=== PATIENT | male | born 1970 | race Hispanic/Latino ===

== ENCOUNTER 2017-10-21 12:51 | Emergency (ER) | payer SELFPAY ==
[~2017-10-21] VITALS: Ht 175.3 cm; Wt 68.0 kg
--- NOTE | 2017-10-21 13:42 | Diagnostic Imaging Report ---
EXAMINATION: CHEST 2 VIEWS INDICATION: COUGH AND FEVER COMPARISON: None FINDINGS: TUBES and LINES: None. LUNGS: Lungs are well inflated. Lungs are clear. There is no evidence of pneumonia or pulmonary edema. PLEURA: No pleural effusion or pneumothorax. HEART AND MEDIASTINUM: The cardiomediastinal silhouette is unremarkable. BONES AND SOFT TISSUES: No acute osseous lesion. 6.0 cm ill-defined patchy sclerotic lesion in the proximal right humerus may represent bone infarct or an ecchondroma. UPPER ABDOMEN: No free air under the diaphragm. IMPRESSION: No acute thoracic abnormality. 6.0 cm ill-defined patchy sclerotic lesion in the proximal right humerus may represent bone infarct or an ecchondroma. Correlate for right proximal arm pain. Signed by: Dr. Ifeoma Mei M.D. on 10/21/2017 1:38 PM
[2017-10-21] MEDS ORDERED: AZITHROMYCIN 250 MG TAB PO ONE (14:45)
[2017-10-21 14:51] VITALS: BP 103/63
== END 2017-10-21 15:04 | disposition home or self-care (01) ==
LOC: ER 12:51
DX: R05 Cough (principal); J20.9 Acute bronchitis, unspecified
CPT/HCPCS: 71046; 99284

== ENCOUNTER 2017-10-24 07:51 | Inpatient (IN) | payer SELFPAY ==
[2017-10-24] VITALS (30 sets, daily range): BP systolic 84–152; BP diastolic 60–89
[~2017-10-24] VITALS: Ht 175.3 cm; Wt 69.4 kg
[2017-10-24] MEDS ORDERED: SODIUM CHLORIDE 0.9% 1000ML 1,000 ML IV SCH ×3 (08:15→14:15)
[2017-10-24] MEDS ORDERED: ACETAMINOPHEN 650 MG SUPP PR ONE (08:30)
[2017-10-24] MEDS ORDERED: OCTREOTIDE ACETATE 500 MCG in SODIUM CHLORIDE 0.9% 250ML 250 ML IV STA (08:45)
[2017-10-24] MEDS ORDERED: PANTOPRAZOLE 40 MG 10ML VIAL IV STA (08:45)
[2017-10-24] MEDS ORDERED: PANTOPRAZOLE INJ 40 MG in SODIUM CHLORIDE 0.9% 50ML 50 ML IV STA (08:45)
[2017-10-24] MEDS ORDERED: ACETAMINOPHEN 1000 MG/100 ML IV STA (08:50)
[2017-10-24 09:00] LABS: BASOPHILS % 0.2 % (0.0-1.0); HEMATOCRIT 32.4 % (38.2-49.6); HEMOGLOBIN 11.8 g/dL (14.0-18.0); LYMPHOCYTES # (AUTO) 2.1 (1.0-3.2); LYMPHOCYTES % 12.4 % (18.0-39.1); MEAN CORPUSCULAR HEMOGLOBIN 33.6 pg (28-32); MEAN CORPUSCULAR HGB CONC 36.4 g/dL (31-35); MEAN CORPUSCULAR VOLUME 92.3 fL (81-99); MONOCYTES # (AUTO) 3.3 (0.2-0.8); MONOCYTES % 19.6 % (4.4-11.3); NEUTROPHILS # (AUTO) 11.1 (2.1-6.9); NEUTROPHILS % 66.8 % (38.7-80.0); PLATELET COUNT 69 x10e3/uL (140-360); RED BLOOD COUNT 3.51 x10e6/uL (4.3-5.7); RED CELL DISTRIBUTION WIDTH 13.1 % (11.7-14.4)
[2017-10-24 09:10] LABS: INR 1.4; PARTIAL THROMBOPLASTIN TIME 32.5 seconds (23.8-35.5); PROTHROMBIN TIME 16.1 seconds (11.9-14.5)
--- NOTE | 2017-10-24 09:13 | Diagnostic Imaging Report ---
PROCEDURE: CHEST SINGLE (PORTABLE) COMPARISON: None. INDICATIONS: BRONCHITIS FINDINGS: LUNGS: No edema. Right basilar opacity likely secondary to atelectasis. PLEURA: No effusions or pneumothorax. HEART \T\ MEDIASTINUM: The heart is within normal size-limits. BONES \T\ SOFT TISSUES: No acute findings. CONCLUSION: No acute thoracic abnormality. Rayo Ruiz D.O. Dictated by: Rayo Ruiz D.O. on 10/24/2017 at 9:18 Electronically approved by: Rayo Ruiz D.O. on 10/24/2017 at 9:18
[2017-10-24 09:19] LABS: ACETAMINOPHEN < 3 ug/mL (10-30); ALANINE AMINOTRANSFERASE 150 IU/L (0-55); ALBUMIN 2.6 g/dL (3.5-5.0); ALBUMIN/GLOBULIN RATIO 0.8 (0.8-2.0); ALKALINE PHOSPHATASE 201 IU/L (40-150); AMYLASE 91 U/L (25-125); ANION GAP 16.8 mmol/L (8-16); BLOOD UREA NITROGEN 66 mg/dL (7-26); BUN/CREATININE RATIO 72 (6-25); CALCIUM 8.3 mg/dL (8.4-10.2); CARBON DIOXIDE 23 mmol/L (22-29); CHLORIDE 96 mmol/L (98-107); CREATINE KINASE 17 IU/L (30-200); CREATININE, SERUM 0.92 mg/dL (0.72-1.25); EST GLOMERULAR FILTRATION RATE > 60 ML/MIN (60-); GLUCOSE 125 mg/dL (74-118); LIPASE 172 U/L (8-78); POTASSIUM 3.8 mmol/L (3.5-5.1); SALICYLATE < 5.0 mg/dL (0-30); SODIUM 132 mmol/L (136-145)
[2017-10-24] MEDS ORDERED: SODIUM CHLORIDE 0.9% 50ML 50 ML ONE ×2 (09:42→19:48)
--- NOTE | 2017-10-24 11:08 | Diagnostic Imaging Report ---
History:Altered Mental Status Comparison studies:None Technique: Axial images were obtained from the skull base to the vertex. Coronal and sagittal images reconstructed from the axial data. Intravenous contrast: None Findings: Scalp/skull: No abnormalities. Extra-axial spaces: No masses. No fluid collections. Brain sulci: Age-appropriate. Ventricles: Normal. No hydrocephalus. Parenchyma: No masses, hemorrhage, acute or chronic cortical vascular insults. Sellar/suprasellar region: No abnormalities. Craniocervical junction: Patent foramen magnum. No Chiari one malformation. Incidental findings: Atherosclerotic calcifications in the left distal vertebral artery . Impression: No acute abnormalities. Signed by: Dr. Meir Mendoza M.D. on 10/24/2017 4:39 PM
[2017-10-24] MEDS ORDERED: LORAZEPAM INJ 2 MG/ML VIAL IV ONE (11:15)
--- NOTE | 2017-10-24 11:19 | Diagnostic Imaging Report ---
PROCEDURE: CT ABDOMEN AND PELVIS WITH CONTRAST TECHNIQUE: The abdomen and pelvis were scanned utilizing a multidetector helical scanner from the diaphragm to the lesser trochanter after the IV administration of 100 cc of Isovue 370. Coronal and sagittal multiplanar reformations were obtained. DLP: 456.19 mGy-cm COMPARISON: None. INDICATIONS: POSSIBLE GI BLEED FINDINGS: LOWER THORAX: Normal. HEPATOBILIARY: Mildly nodular contour the liver. Diffuse hypoattenuation of the liver relative to the spleen, suggestive of steatosis. No focal hepatic lesions. No biliary ductal dilatation. Contracted gallbladder. SPLEEN: No splenomegaly. The spleen measures approximately 11.5 cm in length. PANCREAS: No focal masses or ductal dilatation. ADRENALS: No adrenal nodules. KIDNEYS/URETERS: No hydronephrosis, stones, or solid mass lesions. PELVIC ORGANS/BLADDER: Unremarkable. PERITONEUM / RETROPERITONEUM: No free air or fluid. LYMPH NODES: No lymphadenopathy. Borderline enlarged portacaval node measuring 1 cm. VESSELS: Mild atherosclerotic calcifications. The main portal vein is upper normal in size measuring 1.3 cm in diameter. GI TRACT: No distention or wall thickening. Colonic diverticula without evidence of diverticulitis. Appendix is normal. BONES AND SOFT TISSUES: No acute or suspicious osseous lesions. IMPRESSION: 1. Slightly nodular contour the liver may reflect early cirrhosis. 2. Hepatic steatosis. 3. Colonic diverticula without evidence of diverticulitis. Dictated by: Ba Tucker M.D. on 10/24/2017 at 11:22 Electronically approved by: Ba Tucker M.D. on 10/24/2017 at 11:22
[2017-10-24 11:26] LABS: ANISOCYTOSIS SLIGHT; LYMPHOCYTES % (MANUAL) 6 % (19-48); MONOCYTES % (MANUAL) 11 % (3.4-9.0); NEUTROPHILS % (MANUAL) 82 % (40-74); RBC MORPHOLOGY COMMENT NORMAL
[2017-10-24 11:27] LABS: PLATELET ESTIMATE SLIGHTLY DECREASED; PLATELET MORPHOLOGY COMMENT RARE EDTA CLUMPING
[2017-10-24] MEDS ORDERED: LACTULOSE SYRUP 20 GM/30 ML UDC PO ONE (13:15)
--- NOTE | 2017-10-24 13:15 | Diagnostic Imaging Report ---
PROCEDURE:US GALLBLADDER COMPARISON:Same day CT. INDICATIONS:ABDOMEN PAIN TECHNIQUE: Barboza-scale and color Doppler transverse and longitudinal images of the right upper quadrant of the abdomen were obtained. FINDINGS: Liver: 17.3 cm in right mid-clavicular line, enlarged. Increased echogenicity. Mildly nodular contour. No masses. Main portal vein: 1 cm, normal in diameter. Hepatopetal flow. Gallbladder: Contracted, wall measures 0.4 cm. No stones. Common Bile Duct: Not visualized, although not dilated on same day CT. Sonographic Monroy's sign: Negative Right kidney: 10.1 cm in length. Normal echogenicity. No solid masses or hydronephrosis. Pancreas: The visualized portions are unremarkable. Inferior vena cava: Patent Aorta: Within normal limits Ascites: None in the right upper quadrant of the abdomen. CONCLUSION: Mildly nodular liver contour suggestive of cirrhosis. No focal hepatic mass. Hepatomegaly and hepatic steatosis. Dictated by: Ba Tucker M.D. on 10/24/2017 at 13:19 Electronically approved by: Ba Tucker M.D. on 10/24/2017 at 13:19
[2017-10-24 13:24] LABS: AMPHETAMINES SCREEN,URINE NEGATIVE (NEGATIVE); BENZODIAZEPINES SCREEN,URINE NEGATIVE (NEGATIVE); BILIRUBIN,URINE 1+ (NEGATIVE); CLARITY,URINE CLEAR (CLEAR); COLOR,URINE YELLOW (YELLOW); KETONES,URINE NEGATIVE (NEGATIVE); LEUKOCYTE ESTERASE ,URINE NEGATIVE (NEGATIVE); NITRITE,URINE NEGATIVE (NEGATIVE); PHENCYCLIDINE SCREEN,URINE NEGATIVE (NEGATIVE); PROTEIN,URINE DIPSTICK NEGATIVE (NEGATIVE); URINE UROBILINOGEN 0.2 mg/dL (0.2 - 1)
[2017-10-24 13:39] LABS: BACTERIA,URINE FEW /HPF; EPITHELIAL CELLS,URINE RARE /LPF; RBC,URINE 0-5 /HPF (0-5)
[2017-10-24] MEDS ORDERED: SODIUM CHLORIDE 0.9% 250ML 250 ML IV ONE (14:15)
[2017-10-24] MEDS: SODIUM CHLORIDE 0.9% 1000ML 1,000 ML IV SCH ×2 (14:20→17:29)
[2017-10-24] MEDS: SODIUM CHLORIDE 0.9% IV SCH (15:00)
[2017-10-24] MEDS: OCTREOTIDE ACETATE IV SCH (15:00)
[2017-10-24] MEDS: CEFEPIME HCL 1 GM VIAL IV SCH ×2 (15:05→22:41)
--- NOTE | 2017-10-24 15:30 | History and Physical ---
HISTORY OF PRESENT ILLNESS: Mr. Enma Wood is a 47-year-old man with history of severe alcohol abuse who on Father's Day, almost 2 weeks ago, he started complaining of fever, body aches, chills. He was brought to the emergency room. He was given Z-arelis and he was sent home. The history is obtained through his girlfriend who lives with him for the last 11 years. The patient is unable to give any history. As per girlfriend, for the last week he has been in bed. He does not want to drink or eat. Yesterday, he started throwing up dark material, and he went to the rest room also with dark stools. As per girlfriend, also since yesterday he has been kind of confused, so she decided to bring him to the emergency room today. PAST MEDICAL HISTORY: Alcohol abuse, 30 beers every other day. He also smokes. SOCIAL HISTORY: He lives at home apparently with his girlfriend. ALLERGIES: NO KNOWN DRUG ALLERGIES. PAST SURGICAL HISTORY: No surgeries apparently. PHYSICAL EXAMINATION GENERAL: The patient is confused. He is not following any commands. VITAL SIGNS: Pulse 100, blood pressure 89/51, O2 is 94%. HEART: Regular rate. LUNGS: Good inspiratory effort. ABDOMEN: Soft. EXTREMITIES: Lower extremities with no edema, no erythema. LABORATORY DATA: White count is 16.62, hemoglobin 11.8, hematocrit 32.4, sodium 132, potassium 3.8, creatinine 0.92, glucose 125. Liver enzymes are elevated. Ammonia is 207. Lipase is 172. Toxicology test was negative. Urine 6-10 white blood cells. Stool for occult blood was positive. Had abdominal and pelvis CT done that showed slightly nodular liver that may reflect early cirrhosis, hepatic steatosis. Head CT was negative. Chest x-ray: No acute findings. Had a gallbladder ultrasound that showed nodular liver suggesting cirrhosis, hepatomegaly and hepatic steatosis. ADMITTING DIAGNOSES 1. Acute mental status changes probably due to hepatic encephalopathy. 2. Hyperammonemia. 3. Probably liver cirrhosis. 4. Upper GI bleed. 5. Leukocytosis, etiology not very clear. PLAN: The plan at the present time is to put the patient on IV fluids. He is on Lactulose. I am going to start him on also some IV antibiotics. We are going to get a GI consult, infectious disease consult. The patient is going to be admitted to ICU to monitor for any recurrent bleeding. I spent more than 40 minutes examining the patient, reviewing lab results, x-rays, discussing plan of care with his girlfriend. Job#: [id number] GH
[2017-10-24] MEDS: PANTOPRAZOL 40MG/SOD CHL 0.9% 50 ML IV SCH ×2 (16:20→21:40)
[2017-10-24] MEDS ORDERED: LORAZEPAM INJ 2 MG/ML VIAL IV PRN (18:30)
[2017-10-24 19:23] LABS: HEMOGLOBIN 9.3 g/dL (14.0-18.0)
[2017-10-24] MEDS ORDERED: IOPAMIDOL 370 MG/ML 200 ML INFUS..BTL INJ ONE (19:48)
--- NOTE | 2017-10-24 20:39 | Consultation ---
DATE OF CONSULTATION: October 24, 2017 REFERRING PHYSICIAN: Dr. Ana Ross. REASON FOR CONSULTATION: Acute episode of recurrent hematemesis and melena at home x1 day. HISTORY OF PRESENT ILLNESS: A 47-year-old male from whom I cannot derive any history. He has current encephalopathy. He has history of alcohol dependence. He lives with his girlfriend. She is not available at the bedside to give me any history. Most of my history information derived from the chart. Apparently, he started having some episodes of vomiting dark material along with passing diarrhea stool. This prompted girlfriend to bring him to the emergency room. He was also noted to be in altered sensorium. Ammonia level was significantly elevated. He was hemodynamically stable, although systolic blood pressure went down in the 90s also. He was noted to have tachycardia with heart rate 120s. Hemoglobin was initially 11.8, dropped down to 9.3 after IV fluid hydration. CT of the abdomen showed nodular liver consistent with cirrhosis, no ascites, no splenomegaly, no colitis seen. Liver enzymes noted abnormal with AST 186, ALT 150, alkaline phosphatase 201 and total bilirubin 7.5. INR also mildly elevated to 1.40. REVIEW OF SYSTEMS: Unobtainable. PAST MEDICAL HISTORY: Alcohol dependence, 15 to 30 cans of beer every other day. PAST SURGICAL HISTORY: None. SOCIAL HISTORY: Alcohol dependence. He lives with his girlfriend. Not sure if he is a smoker. FAMILY HISTORY: Noncontributory. ALLERGIES: NONE. HOME MEDICATIONS: None. INPATIENT MEDICATIONS: Acetaminophen, cefepime, lorazepam, normal saline, pantoprazole, octreotide GTT. PHYSICAL EXAMINATION VITAL SIGNS: Temperature 98.9, T max 100.7, blood pressure 108/89 to 104/81, pulse ranging from 121 to 123, respirations 16 to 18, oxygen saturation 99% on room air. GENERAL: Obtunded. HEENT: Oral mucosa is moist. Icteric sclerae. CVS: S1, S2 regular but tachy. LUNGS: Bilaterally grossly clear with poor respiratory efforts. ABDOMEN: Soft, nondistended, no palpable mass or hernia, positive bowel sounds. EXTREMITIES: Warm. No leg edema. RECTAL EXAM: Deferred. The patient was noted to be sitting on melena. LABORATORY DATA: PT 13.1, INR 1.40, sodium 132, potassium 3.8, chloride 96, bicarb 23, BUN 66, creatinine 0.90, glucose 125. Liver enzymes showed a total bilirubin of 7.5, AST 186, ALT 150, alkaline phosphatase 201, ammonia level 207, lactic acid 24.3. Viral hepatitis serology is pending. Stool occult positive. CT of the abdomen and pelvis showed slightly nodular contour of the liver suggestive of cirrhosis, hepatic steatosis, colonic diverticulosis, no splenomegaly, no free fluid, no abnormal adenopathy. IMPRESSION: 1. Upper gastrointestinal bleed, likely from portal hypertensive gastropathy versus cirrhosis, variceal bleed. 2. Hepatic encephalopathy. 3. Leukocytosis, cause unclear. PLAN: Agree to monitor the patient in ICU. Extended medical management for GI bleeding that should include securing 2 large IV access, IV fluids, prophylactic IV antibiotics for GI bleeds in cirrhotic patient. The patient has already been started on cefepime. Monitor hemoglobin. Monitor stool. Transfuse as necessary to keep the hemoglobin above 7. Please do not over transfuse to keep the hematocrit above 24. Over transfusion is going to make the portal hypertensive gastropathy worse, will feed into varices and then will cause recurrent variceal bleeding. Continue octreotide infusion. Continue PPI infusion. Insert NG tube. Lavage. If the patient's lavage continues to show bright red blood and does not clear with time, then probably the patient will need urgent endoscopy. If lavage gets clear, then we can wait for upper endoscopy until tomorrow. The patient is maintaining good blood pressure. Therefore, he is hemodynamically stable. I do not feel the need for urgent endoscopy at this time. If the lavage is clear, then given Lactulose through the NG tube. I thank Dr. Ross for allowing me to participate in the care of this patient. Job#: [id number] MTDD
[2017-10-24] MEDS: ACETAMINOPHEN 1000 MG/100 ML IV PRN (21:18)
[2017-10-24] MEDS: CHLORDIAZEPOXIDE HCL 25 MG CAP NG PRN ×2 (21:58→23:58)
[2017-10-24] MEDS: LACTULOSE SYRUP 20 GM/30 ML UDC NG SCH (21:58)
[2017-10-24] MEDS ORDERED: CEFEPIME HCL 1 GM VIAL IV SCH (22:00)
--- NOTE | 2017-10-24 22:19 | Diagnostic Imaging Report ---
EXAM: CHEST SINGLE (PORTABLE) DATE: 10/24/2017 7:49 PM Time stamp on exam: 2002 hours INDICATION: NG tube position COMPARISON: None FINDINGS: LINES/TUBES: NG tube is visualized below the level of the diaphragm with tip and distal sidehole overlying the gastric fundus BOWEL PATTERN: No evidence for obstruction. SOFT TISSUES: No abnormal calcifications. No mass effect. LUNG BASES: Lung bases are clear BONES: No acute findings. IMPRESSION: 1. NG tube at least to the level of the gastric fundus. 2. Nonobstructive bowel gas pattern Signed by: Dr. Foreign John M.D. on 10/24/2017 10:15 PM
[2017-10-24] MEDS: METRONIDAZOLE 500MG/NS 100ML 100 ML IV SCH (22:53)
[2017-10-25] VITALS (183 sets, daily range): BP systolic 44–198; BP diastolic 21–135
--- NOTE | 2017-10-25 00:02 | Consultation ---
DATE OF CONSULTATION: October 24, 2017 CRITICAL CARE CONSULTATION REASON FOR CONSULTATION: ICU management. Patient is unable to give me any history. Source of history is the ER chart. Patient is encephalopathic. HISTORY OF PRESENT ILLNESS: Mr. Wood is a 47-year-old male with altered status. Patient has history of alcohol use and has been coughing as well. He was altered, jaundiced, febrile, was having black stools and now has an NG tube which has bright red blood as well. He is usually alert and oriented, but now he is confused. In the emergency room, patient's AST/ALT was 186 and 150, alk phos 201, lipase 172, ammonia of 207. His abnormal CT was done in the emergency room which showed slightly nodular contour of the liver like early cirrhosis and hepatic steatosis. He underwent a chest x-ray which did not show any acute thoracic abnormality. REVIEW OF SYSTEMS: Unable to elicit any review of systems from the patient because of altered mental status. PAST MEDICAL HISTORY: Alcohol abuse, jaundice. None other is available. SURGICAL HISTORY: Not available. FAMILY AND SOCIAL HISTORY: Alcohol use. PHYSICAL EXAMINATION: VITAL SIGNS: Temperature 103, pulse of 123, blood pressure 108/89, O2 sat 99% on room air. HEENT: Head atraumatic. NECK: Supple. Jaundiced. CHEST: Clear to auscultation bilaterally. ABDOMEN: Soft, nontender. EXTREMITIES: No pedal edema. NEUROLOGICAL: Confused. LABORATORY DATA: Sodium 132, potassium 3.8, chloride 96, BUN 66, creatinine 0.9. AST 186, ALT 150, total bilirubin 7.5, ammonia 207, lipase 172. ASSESSMENT AND PLAN: Mr. Wood is a 47-year-old male with gastrointestinal bleed, hepatic encephalopathy, history of alcohol use and acute pancreatitis. CURRENT PROBLEMS: 1. GI bleed. 2. EtOH abuse. 3. Acute peritonitis. 4. Hepatic encephalopathy. 5. Fever, source is not very clear. Likely will need coverage for SBP as patient is high risk for having spontaneous bacterial peritonitis also will need cover for aspiration pneumonia. I will continue the patient on cefepime. Will add Flagyl for anaerobic coverage. 6. Octreotide infusion for GI bleed, could be variceal bleed. GI consult. Patient has received lactulose which will be ordered and scheduled for hepatic encephalopathy. 7. Patient has evidence of alcoholic hepatitis as well. At this point, hold off on the steroids. Job#: [id number] GE
[2017-10-25] MEDS: OCTREOTIDE ACETATE IV SCH (01:00)
[2017-10-25] MEDS: SODIUM CHLORIDE 0.9% IV SCH (01:00)
[2017-10-25] MEDS: CHLORDIAZEPOXIDE HCL 25 MG CAP NG PRN ×8 (02:16→21:49)
[2017-10-25] MEDS: PANTOPRAZOL 40MG/SOD CHL 0.9% 50 ML IV SCH ×4 (02:16→10:30)
[2017-10-25 02:20] LABS: HEMATOCRIT 23.2 % (38.2-49.6); HEMOGLOBIN 8.2 g/dL (14.0-18.0)
[2017-10-25] MEDS: SODIUM CHLORIDE 0.9% 1000ML 1,000 ML IV SCH ×4 (02:58→21:22)
[2017-10-25 05:49] LABS: HEMATOCRIT 23.5 % (38.2-49.6); HEMOGLOBIN 7.9 g/dL (14.0-18.0)
[2017-10-25] MEDS: CEFEPIME HCL 1 GM VIAL IV SCH (06:02)
[2017-10-25] MEDS: METRONIDAZOLE 500MG/NS 100ML 100 ML IV SCH ×2 (06:02→13:00)
[2017-10-25 06:58] LABS: BASOPHILS % 0.4 % (0.0-1.0); HEMATOCRIT 23.1 % (38.2-49.6); LYMPHOCYTES # (AUTO) 1.6 (1.0-3.2); LYMPHOCYTES % 14.7 % (18.0-39.1); MEAN CORPUSCULAR HEMOGLOBIN 33.8 pg (28-32); MEAN CORPUSCULAR HGB CONC 34.6 g/dL (31-35); MEAN CORPUSCULAR VOLUME 97.5 fL (81-99); MONOCYTES # (AUTO) 2.4 (0.2-0.8); MONOCYTES % 22.8 % (4.4-11.3); NEUTROPHILS # (AUTO) 6.5 (2.1-6.9); NEUTROPHILS % 61.1 % (38.7-80.0); PLATELET COUNT 69 x10e3/uL (140-360); RED BLOOD COUNT 2.37 x10e6/uL (4.3-5.7); RED CELL DISTRIBUTION WIDTH 13.9 % (11.7-14.4)
[2017-10-25 07:10] LABS: ALANINE AMINOTRANSFERASE 116 IU/L (0-55); ALBUMIN 2.2 g/dL (3.5-5.0); ALBUMIN/GLOBULIN RATIO 0.9 (0.8-2.0); ALKALINE PHOSPHATASE 161 IU/L (40-150); ANION GAP 10.7 mmol/L (8-16); BLOOD UREA NITROGEN 36 mg/dL (7-26); BUN/CREATININE RATIO 49 (6-25); CALCIUM 7.7 mg/dL (8.4-10.2); CARBON DIOXIDE 21 mmol/L (22-29); CHLORIDE 118 mmol/L (98-107); CREATININE, SERUM 0.74 mg/dL (0.72-1.25); EST GLOMERULAR FILTRATION RATE > 60 ML/MIN (60-); GLUCOSE 113 mg/dL (74-118); POTASSIUM 3.7 mmol/L (3.5-5.1); SODIUM 146 mmol/L (136-145)
[2017-10-25 07:54] LABS: LYMPHOCYTES % (MANUAL) 23 % (19-48); MONOCYTES % (MANUAL) 9 % (3.4-9.0); NEUTROPHILS % (MANUAL) 68 % (40-74)
[2017-10-25 07:55] LABS: ANISOCYTOSIS SLIGHT; HYPOCHROMASIA MODERATE; PLATELET ESTIMATE MODERATELY DECREASED; PLATELET MORPHOLOGY COMMENT FEW LARGE; RBC MORPHOLOGY COMMENT NORMAL
[2017-10-25] MEDS: ACETAMINOPHEN 1000 MG/100 ML IV PRN ×2 (07:57→17:08)
[2017-10-25] MEDS: LACTULOSE SYRUP 20 GM/30 ML UDC NG SCH ×2 (09:30→16:33)
--- NOTE | 2017-10-25 10:14 | Progress Note ---
DATE: October 25, 2017 Mr. Wood is a 47-year-old man with a history of alcohol abuse came to the emergency room 2 weeks with fever and body aches. Since then, as per family he has been sick. Brought to the emergency room yesterday because he was confused and had dark stools. He was admitted to the ICU. Has been evaluated by critical care and GI. PHYSICAL EXAMINATION GENERAL: Today, he still is confused. VITALS: Temperature is 100.4, blood pressure 98/70. HEART: Regular rate. LUNGS: Poor inspiratory effort. ABDOMEN: Soft. BLOOD WORK: White count is 10.68, hemoglobin 8, hematocrit 23.1. Sodium 146, creatinine 0.74, glucose 149. Liver enzymes are elevated. Ammonia is 207. Hepatitis profile is pending. Urine cultures and blood cultures are pending. ASSESSMENT AND PLAN 1. Acute mental status, probably hepatic encephalopathy. 2. Hyperammonemia. 3. Liver cirrhosis. 4. Upper gastrointestinal bleed. 5. Anemia secondary to gastrointestinal bleed. 6. Leukocytosis, low-grade fever, on intravenous antibiotics empirically. PLAN: At the present, is to continue IV fluids. Continue lactulose. Continue IV antibiotics. Continue IV PPIs. He probably will go for an EGD today if stable. All of this was discussed with mother at bedside. All questions were answered to satisfaction. I spent more than 30 minutes examining the patient, reviewing overnight events, lab results, x-ray, and discussing plan of care with mother. Job#: [id number] SANDER
[2017-10-25 11:59] LABS: HEMATOCRIT 22.3 % (38.2-49.6); HEMOGLOBIN 7.8 g/dL (14.0-18.0)
[2017-10-25] MEDS ORDERED: CEFTRIAXONE SOD 1 GM VIAL IV SCH (16:00)
[2017-10-25] MEDS: CEFTRIAXONE SOD 2 GM VIAL IV SCH (16:30)
[2017-10-25] MEDS ORDERED: KETAMINE HCL INJ 50 MG/ML 10 ML VIAL ONE (16:45)
[2017-10-25] MEDS ORDERED: MIDAZOLAM HCL 5MG/ML 2ML VIAL ONE (16:45)
[2017-10-25] MEDS: PANTOPRAZOLE 40 MG 10ML VIAL IV SCH (16:47)
[2017-10-25] MEDS: ACYCLOVIR SODIUM INJ 500 MG in SODIUM CHLORIDE 0.9% 100 ML 100 ML IV SCH (17:00)
--- NOTE | 2017-10-25 17:27 | Consultation ---
DATE OF CONSULTATION: REASON FOR CONSULTATION: Sepsis. HISTORY OF PRESENT ILLNESS: Mr. Wood is a 47-year-old male with history of severe alcoholism. The patient 2 weeks ago had fever, body aches and chills. He was brought into the emergency room. He was given Z-Bill and sent home. The patient apparently comes back with worsening condition with fever and chills. The patient is being admitted. The patient is alcoholic. He drinks about 30 beers daily with a history of liver cirrhosis. PAST SURGICAL HISTORY: Denies. ALLERGIES: NKA. SOCIAL HISTORY: As above. Patient is being admitted. Infectious disease was consulted. The patient is currently in the intensive care unit. There is no family. LABORATORY DATA: Reviewed. His white count is 10.6, hemoglobin 8. His platelets are 69. Hepatitis A, B and C are negative. Toxicology was negative. Blood cultures are still pending. Chest x-ray showed nonobstructive bowel gas pattern. No infiltrate. CT of the abdomen and pelvis shows slightly nodular liver. IMPRESSION: Altered mental status and fever in a patient with alcoholic and liver cirrhosis. I would recommend to put him on Rocephin 1 g q.12. I will obtain an LP since there is really no clear source. Will add acyclovir. Will add ampicillin to cover SSE and listeria. Will add vancomycin. Await blood cultures. Prognosis is guarded. Will follow. Job#: [id number]
[2017-10-25] MEDS: AMPICILLIN SOD 500 MG in SODIUM CHLORIDE 0.9% 50ML 50 ML IV SCH ×2 (18:00→23:37)
[2017-10-25 19:22] LABS: HEMATOCRIT 21.4 % (38.2-49.6); HEMOGLOBIN 7.3 g/dL (14.0-18.0)
[2017-10-26] VITALS (49 sets, daily range): BP systolic 90–135; BP diastolic 29–107
[2017-10-26] MEDS: CHLORDIAZEPOXIDE HCL 25 MG CAP NG PRN ×3 (00:35→09:12)
[2017-10-26] MEDS: ACYCLOVIR SODIUM INJ 500 MG in SODIUM CHLORIDE 0.9% 100 ML 100 ML IV SCH ×3 (00:36→17:07)
[2017-10-26 01:48] LABS: BASOPHILS # (AUTO) 0.1 (0.0-0.1); BASOPHILS % 0.6 % (0.0-1.0); EOSINOPHILS % 0.1 % (0.0-6.0); HEMATOCRIT 24.5 % (38.2-49.6); HEMOGLOBIN 8.4 g/dL (14.0-18.0); LYMPHOCYTES # (AUTO) 1.9 (1.0-3.2); LYMPHOCYTES % 19.7 % (18.0-39.1); MEAN CORPUSCULAR HEMOGLOBIN 33.5 pg (28-32); MEAN CORPUSCULAR HGB CONC 34.3 g/dL (31-35); MEAN CORPUSCULAR VOLUME 97.6 fL (81-99); MONOCYTES # (AUTO) 1.4 (0.2-0.8); MONOCYTES % 14.4 % (4.4-11.3); NEUTROPHILS # (AUTO) 6.1 (2.1-6.9); NEUTROPHILS % 63.9 % (38.7-80.0); PLATELET COUNT 67 x10e3/uL (140-360); RED BLOOD COUNT 2.51 x10e6/uL (4.3-5.7); RED CELL DISTRIBUTION WIDTH 14.4 % (11.7-14.4)
[2017-10-26] MEDS: ACETAMINOPHEN 1000 MG/100 ML IV PRN ×2 (04:16→16:01)
[2017-10-26] MEDS: CEFTRIAXONE SOD 2 GM VIAL IV SCH ×2 (04:16→16:42)
[2017-10-26] MEDS: SODIUM CHLORIDE 0.9% 1000ML 1,000 ML IV SCH (05:30)
[2017-10-26] MEDS: AMPICILLIN SOD 500 MG in SODIUM CHLORIDE 0.9% 50ML 50 ML IV SCH ×4 (05:34→23:55)
[2017-10-26 06:11] LABS: ANION GAP 11.5 mmol/L (8-16); BUN/CREATININE RATIO 21 (6-25); CALCIUM 7.8 mg/dL (8.4-10.2); CARBON DIOXIDE 22 mmol/L (22-29); CHLORIDE 124 mmol/L (98-107); CREATININE, SERUM 0.73 mg/dL (0.72-1.25); EST GLOMERULAR FILTRATION RATE > 60 ML/MIN (60-); GLUCOSE 104 mg/dL (74-118); POTASSIUM 3.5 mmol/L (3.5-5.1)
[2017-10-26 06:19] LABS: SODIUM 154 mmol/L (136-145)
[2017-10-26 06:20] LABS: BLOOD UREA NITROGEN 15 mg/dL (7-26)
[2017-10-26] MEDS ORDERED: DEXTROSE 5%/0.45% SOD CHL 1,000 ML IV ONE (08:13)
[2017-10-26] MEDS: DEXTROSE 5%/0.45% SOD CHL 1,000 ML IV SCH ×2 (08:18→21:37)
[2017-10-26] MEDS: PANTOPRAZOLE 40 MG 10ML VIAL IV SCH ×3 (08:18→20:41)
[2017-10-26] MEDS: LACTULOSE SYRUP 20 GM/30 ML UDC NG SCH ×2 (09:12→17:00)
[2017-10-26] MEDS ORDERED: LIDOCAINE 1% 5ML-MPF INJ ONE (10:15)
[2017-10-26] MEDS ORDERED: LORAZEPAM INJ 2 MG/ML VIAL IV NR (10:30)
--- NOTE | 2017-10-26 10:40 | Progress Note ---
DATE: October 26, 2017 Mr. Wood is a 47-year-old man with a history of alcohol abuse. He came to the emergency room 2 weeks prior to admission with fever and body aches. He did not get better for 2 weeks. He started having changes in mental status and dark stools, so he was brought to the emergency room and admitted to ICU. He has been seen by GI, critical care and infectious disease. PHYSICAL EXAMINATION GENERAL: Today, he is a little more awake and alert. VITALS: Temperature is 98.6, blood pressure 114/58. HEART: Regular rate. LUNGS: Poor inspiratory effort. ABDOMEN: Distended and soft. LABS: On the blood work, white count is 9.52, hemoglobin 8.4, hematocrit 24.5. Sodium is 154, creatinine 0.73, glucose 104. Liver enzymes were elevated. Hepatitis profile came back negative. Blood cultures so far have been negative, urine culture also. PLAN 1. Continue IV fluids. 2. Continue lactulose. 3. Continue IV Protonix. 4. He has been seen by Dr. Galeano of infectious disease who is starting him on Rocephin, acyclovir, ampicillin and vancomycin. 5. The patient is probably going to go for an LP since the source of infection is not clear. 6. The overall prognosis of the patient is still guarded. I spent more than 30 minutes examining the patient, reviewing overnight events, lab results and x-rays. Job#: [id number]
[2017-10-26] MEDS ORDERED: LORAZEPAM INJ 2 MG/ML VIAL IV ONE ×2 (11:15→12:00)
[2017-10-26] MEDS ORDERED: LORAZEPAM INJ 2 MG/ML VIAL ONE (11:29)
[2017-10-26] MEDS ORDERED: MIDAZOLAM HCL 5 MG/ML VIAL ONE (11:29)
[2017-10-26] MEDS ORDERED: MIDAZOLAM HCL 2 MG/2 ML VIAL IV STA (11:47)
--- NOTE | 2017-10-26 12:06 | Progress Note ---
DATE: The patient is more awake. However, still obtunded and getting lactulose. Status post EGD. PHYSICAL EXAMINATION VITAL SIGNS: Temperature 103.2, pulse 98, blood pressure 131/57. CHEST: Clear to auscultation bilaterally. ABDOMEN: Soft. HEART: S1 and S2 audible. LABS: White count of 9000, hemoglobin 8.4 and platelets 67,000. Chemistry: Sodium 154, potassium 3.5, chloride 124, BUN 15, creatinine 0.73. ASSESSMENT AND PLAN: Ed Diaz is a 47-year-old male presenting with gastrointestinal bleeding, hepatic encephalopathy, status post esophagogastroduodenoscopy, upper gastrointestinal bleed. CURRENT PROBLEMS 1. Gastrointestinal bleed: Management per gastroenterology. The patient was diagnosed with reflux esophagitis and acute gastric ulcer. Hemoglobin and hematocrit are stable. 2. Fever: The patient is on antibiotics. SBP was covered. However, continues to spike temperature. Infectious disease has been consulted. Will follow infectious disease recommendations. 3. Hypernatremia: The patient is on normal saline. Will start the patient on D5-1/2 NS at 50 cc an hour. Job#: [id number] MA
--- NOTE | 2017-10-26 14:47 | Consultation ---
DATE OF CONSULTATION: October 26, 2017 NEUROLOGY CONSULTATION HISTORY OF PRESENT ILLNESS: Mr. Wood is severely encephalopathic. There are no family members available at the bedside. History is obtained from review of the electronic medical records. Mr. Wood was brought into the emergency center on October 24, 2017, with a 2-day history of confusion, decreased oral intake, vomiting dark material, and dark stools. The patient was admitted to the intensive care unit for further evaluation and treatment of probable gastrointestinal bleed and encephalopathy. As part of his initial evaluation, Mr. Wood was found to have markedly elevated liver enzymes thought to be secondary to alcohol abuse. The elevation in the liver enzymes and hyperammonemia was thought to be the cause of the patient's altered mental status (i.e., hepatic encephalopathy). However, throughout his hospitalization, the patient has spiked fevers as high as 103 degrees Fahrenheit, and had persistently elevated white blood cell counts with leftward shift. Despite treatment for hyperammonemia with lactulose, the patient's altered mentation did not appear to improve. Dr. Galeano with infectious disease was consulted to evaluate for an underlying infectious etiology. He recommended a lumbar puncture, as well as a neurology consultation to evaluate for other causes of encephalopathy. REVIEW OF SYSTEMS: Unable to obtain secondary to the patient being encephalopathic. PAST MEDICAL HISTORY: Alcohol abuse. It is reported the patient drinks up to 30 beers every other day. PAST SURGICAL HISTORY: No known past surgical history. PAST HOSPITALIZATIONS: No known past hospitalizations. FAMILY HISTORY: Unable to obtain secondary to the patient being encephalopathic. SOCIAL HISTORY: The patient is single, lives with a girlfriend. His level of education and occupation are unknown. The patient is reported use tobacco. He does consume alcohol as detailed in the history of present illness. Use of recreational drugs is unknown. HOME MEDICATIONS: None. Allergies: NO KNOWN DRUG ALLERGIES. NO KNOWN FOOD ALLERGIES. NO KNOWN ALLERGIES TO LATEX. NO KNOWN ALLERGIES TO IODINE OR OTHER CONTRAST MATERIALS. PHYSICAL EXAMINATION VITAL SIGNS: Height 69 inches, weight 147 pounds. BMI 21.6 kg per meter squared. Blood pressure 114/58 mmHg, pulse 96 beats per minute, respiratory rate 18 breaths per minute, oxygen saturation 100% on room air. GENERAL: Patient is awake and alert. Does not appear distressed. HEENT: Normocephalic and atraumatic. Pupils are equal, round and reactive to light. Icteric sclerae. Moist mucous membranes. NECK: Supple. No appreciable thyromegaly. No appreciable carotid bruits. CARDIOVASCULAR: S1 and S2. Regular rate and rhythm. No murmurs, rubs or gallops. RESPIRATORY: Clear to auscultation bilaterally. No wheezes, rhonchi or rales. EXTREMITIES: The skin is warm and dry. No clubbing, cyanosis or edema. The posterior tibial and dorsalis pedis pulses are 2+ and symmetric. SKIN: No rashes or lesions. Mildly jaundice. NEUROLOGIC: Memory/attention: The patient is awake and alert. Oriented to person, place (state only), but not time, or situation. CRANIAL NERVES: Cranial nerve I not tested. Cranial nerve II, III, IV, : Pupils are equal and round, react briskly to light (from 4 mm to 2 mm). Extraocular movements are grossly intact. No nystagmus. Cranial nerve V: Sensation to light touch is grossly intact in the bilateral V1 through V3 distributions. Strength of the temporalis and masseter muscles is within normal limits. Cranial nerve VII: The face is symmetric as are all facial movements. Strength is within normal limits. Cranial nerve VIII: Hearing is grossly intact to finger rub bilaterally. Cranial nerve IX and X: The soft palate elevates equally and symmetrically. Cranial nerve XII: Normal strength of the bilateral sternocleidomastoid and trapezius muscles. Cranial nerve XII: The tongue protrudes midline and moves symmetrically from side to side. STRENGTH: Bulk is normal. The patient moves all extremities equally and symmetrically. He moves all extremities to command. Tone is normal. DTRs: Deep tendon reflexes are 1+ and symmetric at the triceps, biceps, brachioradialis, patellas, and Achilles. Plantar responses are flexor bilaterally. SENSATION: Grossly intact to light touch in both arms and both legs. CEREBELLAR: Unable to assess secondary to the patient being encephalopathic. GAIT: Deferred. SPEECH: Spontaneous speech is dysarthric without aphasia. Repetition cannot be assessed. INVOLUNTARY MOVEMENTS: None. PRONATOR DRIFT: None. LABORATORY DATA: Sodium 154, potassium 3.5, chloride 124, carbon dioxide 22, anion gap 11.5, BUN 15, creatinine 0.73, estimated GFR greater than 60. BUN to creatinine ratio 21. Glucose 104. Calcium 7.8. Ammonia 66, total bilirubin 5.2, AST 140, ALT 116, alkaline phosphatase 161. Total protein 4.6, albumin 2.2, globulin 2.4. Albumin to globulin ratio 0.9. From October 24, 2017, creatinine kinase 17, CK-MB 0.4 and troponin I 0.001. B-natriuretic peptide 21.3. CBC with differential and platelets reveals a white blood cell count of 9.52 with 63.9% neutrophils, 19.7% lymphocytes, 14.4% monocytes, 0.1% eosinophils, 0.6% basophils. Hemoglobin and hematocrit are 8.4 and 24.5, respectively. The platelet count is 67,000. From October 24, 2017, PT 16.1, INR 1.4, and PTT 32.5. From October 24, 2017, urinalysis reveals a urine specific gravity of 1.005, 1+ bilirubin, 6-10 white blood cells with few urine bacteria. Serum salicylate less than 5. Acetaminophen level less than 3. Ethyl alcohol level less than 10. Urine drug screen was negative. Stool occult blood positive. Hepatitis A IgM antibody negative. Hepatitis B surface antigen negative. Hepatitis B core IgM antibody negative. Hepatitis C antibody less than 0.1. DIAGNOSTIC STUDIES: Gallbladder scan of October 24, 2017, mildly nodular liver contour suggestive of cirrhosis. No focal hepatic mass. Hepatomegaly and hepatic steatosis. Chest x-ray on October 23, 2017, no acute thoracic abnormality. CT of the brain without contrast on October 24, 2017: On my review, there is no evidence of recent large territorial ischemia, hemorrhage, mass, or mass effect. CT of the abdomen and pelvis on October 24, 2017: 1. Slightly nodular contour of the liver may reflect early cirrhosis. 2. Hepatic steatosis. 3. Colonic diverticula without evidence of diverticulitis. Chest x-ray on October 24, 2017: 1. NG tube at least to the level of the gastric fundus. 2. Nonobstructive bowel gas pattern. ASSESSMENT AND PLAN: Mr. Wood is a 47-year-old man with a past medical history significant for alcohol abuse, admitted with encephalopathy, hematemesis, and dark stools. The patient's neurological examination is significant for him being moderately to severely encephalopathic. Otherwise, there are no focal deficits on neurological examination. The patient's laboratory data and other diagnostic studies have been reviewed and are documented above. In my opinion, the patient's encephalopathy is probably due to hepatic dysfunction. However, the patient has spiked temperatures as high as 103 degrees Fahrenheit over the past 24 hours. He has had elevated white blood cell counts with leftward shift. These findings in combination with the patient's persistent encephalopathy were concerning to Dr. Galeano for meningitis. The neurology service was asked to perform a lumbar puncture on this patient. However, cerebrospinal fluid cannot be obtained. Mr. Wood was sedated with 8 mg of Ativan and 2 mg of Versed. Even stills, the patient continued to move around throughout the procedure, making it impossible to obtain cerebrospinal fluid. RECOMMENDATIONS 1. Blood work will be ordered to complete an encephalopathy evaluation, including thyroid-stimulating hormone, vitamin B1, vitamin B12, and RPR. 2. As stated above, a lumbar puncture was attempted, but cerebrospinal fluid cannot be obtained due to the patient non-cooperation. Consider having a lumbar puncture performed by interventional radiology on Sunday, October 29, 2017. 3. Continue with current antibiotics. Follow up on the results of the previous collected blood and urine cultures. Consider a repeat lumbar puncture as discussed above. 4. Limit sedative/hypnotic and pain medications as much as possible as these medicines will alter the patient's sensorium. 5. Employe environmental cues to minimize delirium. 6. Defer treatment of the remaining medical comorbidities to the primary and other services following the patient. Thank you for this consultation. I will continue to follow the patient while he remains in the hospital. Time spent 70 minutes. Job#: [id number] SANDER NAJERA
[2017-10-26] MEDS: ZIPRASIDONE 20 MG VIAL IM PRN (14:58)
[2017-10-26] MEDS: WATER STERILE 10 ML VIAL INJ PRN (14:58)
[2017-10-26] MEDS: LORAZEPAM INJ 2 MG/ML VIAL IV PRN ×2 (15:05→23:54)
[2017-10-27] VITALS (52 sets, daily range): BP systolic 46–128; BP diastolic 26–90
[2017-10-27] MEDS: ACYCLOVIR SODIUM INJ 500 MG in SODIUM CHLORIDE 0.9% 100 ML 100 ML IV SCH ×3 (01:00→16:28)
[2017-10-27] MEDS: WATER STERILE 10 ML VIAL INJ PRN (04:41)
[2017-10-27] MEDS: CEFTRIAXONE SOD 2 GM VIAL IV SCH ×2 (04:41→16:28)
[2017-10-27] MEDS: ZIPRASIDONE 20 MG VIAL IM PRN (04:41)
[2017-10-27] MEDS: ACETAMINOPHEN 1000 MG/100 ML IV PRN ×3 (04:41→21:43)
[2017-10-27] MEDS: AMPICILLIN SOD 500 MG in SODIUM CHLORIDE 0.9% 50ML 50 ML IV SCH ×4 (06:27→23:35)
[2017-10-27 06:29] LABS: BASOPHILS % 0.7 % (0.0-1.0); EOSINOPHILS % 0.4 % (0.0-6.0); LYMPHOCYTES % 35.6 % (18.0-39.1); MEAN CORPUSCULAR HGB CONC 34.5 g/dL (31-35); MEAN CORPUSCULAR VOLUME 95.8 fL (81-99); MONOCYTES # (AUTO) 0.6 (0.2-0.8); MONOCYTES % 11.1 % (4.4-11.3); NEUTROPHILS # (AUTO) 2.9 (2.1-6.9); NEUTROPHILS % 50.8 % (38.7-80.0); PLATELET COUNT 71 x10e3/uL (140-360); RED BLOOD COUNT 2.12 x10e6/uL (4.3-5.7); RED CELL DISTRIBUTION WIDTH 14.7 % (11.7-14.4)
[2017-10-27 06:31] LABS: HEMATOCRIT 20.3 % (38.2-49.6)
[2017-10-27 06:50] LABS: ALANINE AMINOTRANSFERASE 101 IU/L (0-55); ALBUMIN/GLOBULIN RATIO 0.7 (0.8-2.0); ALKALINE PHOSPHATASE 118 IU/L (40-150); ANION GAP 10.1 mmol/L (8-16); BLOOD UREA NITROGEN 12 mg/dL (7-26); BUN/CREATININE RATIO 17 (6-25); CALCIUM 7.7 mg/dL (8.4-10.2); CARBON DIOXIDE 22 mmol/L (22-29); CHLORIDE 127 mmol/L (98-107); CREATININE, SERUM 0.69 mg/dL (0.72-1.25); EST GLOMERULAR FILTRATION RATE > 60 ML/MIN (60-); GLUCOSE 134 mg/dL (74-118); POTASSIUM 3.1 mmol/L (3.5-5.1); SODIUM 156 mmol/L (136-145)
[2017-10-27 07:46] LABS: BAND NEUTROPHILS % (MANUAL) 3 %; EOSINOPHILS % (MANUAL) 1 % (0-7); LYMPHOCYTES % (MANUAL) 21 % (19-48); METAMYELOCYTES % (MANUAL) 2 % (0-0); MONOCYTES % (MANUAL) 3 % (3.4-9.0); NEUTROPHILS % (MANUAL) 69 % (40-74); NUCLEATED RED BLOOD CELLS 1
[2017-10-27] MEDS: PANTOPRAZOLE 40 MG 10ML VIAL IV SCH ×2 (08:05→21:06)
[2017-10-27] MEDS: LORAZEPAM INJ 2 MG/ML VIAL IV PRN ×2 (08:05→15:13)
[2017-10-27] MEDS ORDERED: POTASSIUM CHLORIDE 20MEQ/100ML 100 ML IV ONE (08:45)
[2017-10-27] MEDS ORDERED: SODIUM CHLORIDE 0.9% 250ML 250 ML IV ONE (08:45)
[2017-10-27] MEDS: CHLORDIAZEPOXIDE HCL 25 MG CAP NG PRN ×6 (10:04→23:57)
[2017-10-27] MEDS: LACTULOSE SYRUP 20 GM/30 ML UDC NG SCH ×2 (10:04→17:00)
[2017-10-27] MEDS: DEXTROSE 5%/0.45% SOD CHL 1,000 ML IV SCH ×2 (10:55→23:39)
[2017-10-28] VITALS (44 sets, daily range): BP systolic 78–131; BP diastolic 44–83
[2017-10-28] MEDS: ACYCLOVIR SODIUM INJ 500 MG in SODIUM CHLORIDE 0.9% 100 ML 100 ML IV SCH ×3 (00:59→15:53)
[2017-10-28] MEDS: CHLORDIAZEPOXIDE HCL 25 MG CAP NG PRN ×3 (03:00→20:20)
[2017-10-28 04:28] LABS: BASOPHILS # (AUTO) 0.1 (0.0-0.1); EOSINOPHILS % 0.6 % (0.0-6.0); HEMATOCRIT 27.1 % (38.2-49.6); HEMOGLOBIN 9.6 g/dL (14.0-18.0); LYMPHOCYTES # (AUTO) 3.1 (1.0-3.2); LYMPHOCYTES % 49.5 % (18.0-39.1); MEAN CORPUSCULAR HEMOGLOBIN 32.3 pg (28-32); MEAN CORPUSCULAR HGB CONC 35.4 g/dL (31-35); MEAN CORPUSCULAR VOLUME 91.2 fL (81-99); MONOCYTES # (AUTO) 0.5 (0.2-0.8); MONOCYTES % 7.9 % (4.4-11.3); NEUTROPHILS # (AUTO) 2.5 (2.1-6.9); NEUTROPHILS % 39.9 % (38.7-80.0); PLATELET COUNT 79 x10e3/uL (140-360); RED BLOOD COUNT 2.97 x10e6/uL (4.3-5.7); RED CELL DISTRIBUTION WIDTH 17.9 % (11.7-14.4)
[2017-10-28 04:47] LABS: ANION GAP 11.5 mmol/L (8-16); BLOOD UREA NITROGEN 10 mg/dL (7-26); BUN/CREATININE RATIO 15 (6-25); CALCIUM 7.9 mg/dL (8.4-10.2); CARBON DIOXIDE 22 mmol/L (22-29); CHLORIDE 129 mmol/L (98-107); CREATININE, SERUM 0.67 mg/dL (0.72-1.25); EST GLOMERULAR FILTRATION RATE > 60 ML/MIN (60-); GLUCOSE 117 mg/dL (74-118); POTASSIUM 3.5 mmol/L (3.5-5.1); SODIUM 159 mmol/L (136-145)
[2017-10-28] MEDS: CEFTRIAXONE SOD 2 GM VIAL IV SCH ×2 (05:00→15:52)
[2017-10-28] MEDS: AMPICILLIN SOD 500 MG in SODIUM CHLORIDE 0.9% 50ML 50 ML IV SCH ×3 (06:00→17:18)
[2017-10-28] MEDS: PANTOPRAZOLE 40 MG 10ML VIAL IV SCH ×2 (08:16→20:20)
[2017-10-28] MEDS: LACTULOSE SYRUP 20 GM/30 ML UDC NG SCH ×2 (09:00→17:18)
[2017-10-28] MEDS: DEXTROSE 5% 1,000 ML IV SCH ×2 (10:49→22:39)
[2017-10-28] MEDS ORDERED: ACETAMINOPHEN 1000 MG/100 ML IV PRN (14:15)
[2017-10-29] VITALS (17 sets, daily range): BP systolic 88–142; BP diastolic 54–109
[2017-10-29] MEDS: AMPICILLIN SOD 500 MG in SODIUM CHLORIDE 0.9% 50ML 50 ML IV SCH ×5 (00:03→23:48)
[2017-10-29] MEDS: ACYCLOVIR SODIUM INJ 500 MG in SODIUM CHLORIDE 0.9% 100 ML 100 ML IV SCH ×3 (00:13→17:25)
[2017-10-29] MEDS ORDERED: SODIUM CHLORIDE 0.9% 100 ML ONE (00:16)
[2017-10-29] MEDS: CHLORDIAZEPOXIDE HCL 25 MG CAP NG PRN ×3 (03:16→22:38)
[2017-10-29] MEDS ORDERED: TRAMADOL HCL 50 MG TAB PO PRN (03:45)
[2017-10-29] MEDS ORDERED: HYDROMORPHONE 1MG/1ML INJ IV PRN (04:00)
[2017-10-29] MEDS: CEFTRIAXONE SOD 2 GM VIAL IV SCH ×2 (04:06→17:25)
[2017-10-29 05:22] LABS: BASOPHILS % 0.7 % (0.0-1.0); EOSINOPHILS # (AUTO) 0.1 (0.0-0.4); EOSINOPHILS % 0.8 % (0.0-6.0); HEMOGLOBIN 8.9 g/dL (14.0-18.0); LYMPHOCYTES % 50.2 % (18.0-39.1); MEAN CORPUSCULAR HEMOGLOBIN 31.8 pg (28-32); MEAN CORPUSCULAR HGB CONC 34.2 g/dL (31-35); MEAN CORPUSCULAR VOLUME 92.9 fL (81-99); MONOCYTES # (AUTO) 0.4 (0.2-0.8); MONOCYTES % 7.4 % (4.4-11.3); NEUTROPHILS # (AUTO) 2.4 (2.1-6.9); NEUTROPHILS % 40.2 % (38.7-80.0); PLATELET COUNT 78 x10e3/uL (140-360); RED CELL DISTRIBUTION WIDTH 17.6 % (11.7-14.4)
[2017-10-29 05:39] LABS: ALANINE AMINOTRANSFERASE 95 IU/L (0-55); ALBUMIN/GLOBULIN RATIO 0.6 (0.8-2.0); ALKALINE PHOSPHATASE 166 IU/L (40-150); ANION GAP 13.2 mmol/L (8-16); BLOOD UREA NITROGEN 10 mg/dL (7-26); BUN/CREATININE RATIO 15 (6-25); CALCIUM 7.8 mg/dL (8.4-10.2); CARBON DIOXIDE 22 mmol/L (22-29); CHLORIDE 118 mmol/L (98-107); CREATININE, SERUM 0.68 mg/dL (0.72-1.25); EST GLOMERULAR FILTRATION RATE > 60 ML/MIN (60-); GLUCOSE 107 mg/dL (74-118); POTASSIUM 3.2 mmol/L (3.5-5.1); SODIUM 150 mmol/L (136-145)
[2017-10-29] MEDS: ONDANSETRON HCL INJ 2 MG/ML VIAL IV PRN (06:17)
[2017-10-29 07:02] LABS: EOSINOPHILS % (MANUAL) 1 % (0-7); LYMPHOCYTES % (MANUAL) 45 % (19-48); MONOCYTES % (MANUAL) 7 % (3.4-9.0); NEUTROPHILS % (MANUAL) 45 % (40-74)
[2017-10-29 07:04] LABS: RBC MORPHOLOGY COMMENT NORMAL
[2017-10-29 07:05] LABS: ANISOCYTOSIS SLIGHT; HYPOCHROMASIA SLIGHT; PLATELET ESTIMATE SLIGHTLY DECREASED; PLATELET MORPHOLOGY COMMENT FEW GIANT
[2017-10-29] MEDS: PANTOPRAZOLE 40 MG 10ML VIAL IV SCH ×2 (09:10→21:02)
[2017-10-29] MEDS: LACTULOSE SYRUP 20 GM/30 ML UDC NG SCH ×2 (09:11→17:25)
[2017-10-29] MEDS: POTASSIUM CHLORIDE 20MEQ/100ML 100 ML IV PRN (09:12)
--- NOTE | 2017-10-29 09:14 | Diagnostic Imaging Report ---
PROCEDURE: CHEST SINGLE (PORTABLE) COMPARISON: None. INDICATIONS: SHORTNESS OF BREATH FINDINGS: The lungs are underinflated. No focal airspace consolidation, pleural effusion, or pneumothorax. Normal heart size for technique. Prominence of the central pulmonary vasculature. No acute osseous abnormality. CONCLUSION: Low lung volumes with pulmonary venous congestion. Dictated by: Dipesh Zimmerman M.D. on 10/29/2017 at 9:18 Electronically approved by: Dipesh Zimmerman M.D. on 10/29/2017 at 9:18
--- NOTE | 2017-10-29 10:43 | Progress Note ---
DATE: October 29, 2017 Mr. Wood is a 47-year-old man with a history of alcohol abuse came to the emergency room 2 weeks prior to admission with severe and body aches. He was sent home with antibiotics. He did not get better. He started having changes in mental status and dark stool. He was admitted to the ICU. He is still in the ICU. He has been evaluated by GI, infectious disease, neurologist. PHYSICAL EXAMINATION GENERAL: He is a little more awake, but he is confused. VITALS: Temperature is 98.8, blood pressure 128/93. HEART: Regular rate. LUNGS: Poor inspiratory effort. ABDOMEN: Soft. BLOOD WORK: Potassium is 3.2, sodium is 150, creatinine is 0.68, glucose 107. White count is 5.96, hemoglobin 8.9, hematocrit 26. Chest x-ray done today shows low lung volumes with pulmonary venous congestion. Abdominal and pelvic CT done on admission shows normal contour of the liver, hepatic steatosis, colonic diverticula with no diverticulitis. Head CT on admission shows no acute abnormalities. Ammonia level is normal. Today, it is 49. B12 level is pending. ASSESSMENT AND PLAN 1. Changes in mental status, multifactorial: Probably due to infection and hyperammonemia. 2. Gastrointestinal bleed secondary to esophagitis and acute gastric ulcer. 3. Anemia secondary to gastrointestinal bleed. 4. Hypernatremia. 5. Fever probably due to some type of infection. 6. Liver cirrhosis. PLAN: At the present time, is to continue IV fluids. Continue PPI. Continue IV antibiotics. The patient is probably going to go for an LP today. The overall prognosis of the patient remains guarded. I spent more than 30 minutes examining the patient, reviewing overnight events, weekend events, reviewing x-rays and blood work. Job#: [id number] SANDER
[2017-10-29] MEDS: DEXTROSE 5% 1,000 ML IV SCH ×2 (11:56→23:48)
[2017-10-29] MEDS: NICOTINE 21 MG/EA PATCH TOP PRN (12:06)
[2017-10-29] MEDS ORDERED: ACETAMINOPHEN 325 MG TAB PO PRN (23:30)
[2017-10-30] VITALS (26 sets, daily range): BP systolic 106–131; BP diastolic 63–86
[2017-10-30] MEDS: ACETAMINOPHEN 325 MG TAB PO PRN (00:33)
[2017-10-30] MEDS: CHLORDIAZEPOXIDE HCL 25 MG CAP NG PRN (00:39)
[2017-10-30] MEDS: DEXTROSE 5% 1,000 ML IV SCH (02:10)
[2017-10-30] MEDS: CEFTRIAXONE SOD 2 GM VIAL IV SCH ×2 (04:38→18:47)
[2017-10-30] MEDS: ACYCLOVIR SODIUM INJ 500 MG in SODIUM CHLORIDE 0.9% 100 ML 100 ML IV SCH ×3 (04:38→18:47)
[2017-10-30] MEDS: AMPICILLIN SOD 500 MG in SODIUM CHLORIDE 0.9% 50ML 50 ML IV SCH ×4 (06:35→23:55)
[2017-10-30 09:39] LABS: BASOPHILS % 0.4 % (0.0-1.0); EOSINOPHILS # (AUTO) 0.1 (0.0-0.4); EOSINOPHILS % 1.7 % (0.0-6.0); HEMATOCRIT 23.5 % (38.2-49.6); HEMOGLOBIN 8.3 g/dL (14.0-18.0); LYMPHOCYTES # (AUTO) 2.1 (1.0-3.2); LYMPHOCYTES % 39.4 % (18.0-39.1); MEAN CORPUSCULAR HEMOGLOBIN 31.8 pg (28-32); MEAN CORPUSCULAR HGB CONC 35.3 g/dL (31-35); MONOCYTES # (AUTO) 0.4 (0.2-0.8); MONOCYTES % 6.8 % (4.4-11.3); NEUTROPHILS # (AUTO) 2.7 (2.1-6.9); NEUTROPHILS % 51.3 % (38.7-80.0); PLATELET COUNT 62 x10e3/uL (140-360); RED BLOOD COUNT 2.61 x10e6/uL (4.3-5.7); RED CELL DISTRIBUTION WIDTH 16.6 % (11.7-14.4)
[2017-10-30] MEDS: LACTULOSE SYRUP 20 GM/30 ML UDC NG SCH ×2 (09:51→18:47)
[2017-10-30] MEDS: PANTOPRAZOLE 40 MG 10ML VIAL IV SCH ×2 (09:51→20:08)
[2017-10-30 09:56] LABS: ALANINE AMINOTRANSFERASE 80 IU/L (0-55); ALBUMIN 1.8 g/dL (3.5-5.0); ALBUMIN/GLOBULIN RATIO 0.4 (0.8-2.0); ALKALINE PHOSPHATASE 180 IU/L (40-150); ANION GAP 9.3 mmol/L (8-16); BLOOD UREA NITROGEN 8 mg/dL (7-26); BUN/CREATININE RATIO 15 (6-25); CALCIUM 7.8 mg/dL (8.4-10.2); CARBON DIOXIDE 21 mmol/L (22-29); CHLORIDE 109 mmol/L (98-107); CREATININE, SERUM 0.53 mg/dL (0.72-1.25); EST GLOMERULAR FILTRATION RATE > 60 ML/MIN (60-); GLUCOSE 107 mg/dL (74-118); MAGNESIUM 1.4 MG/DL (1.3-2.1); POTASSIUM 3.3 mmol/L (3.5-5.1); SODIUM 136 mmol/L (136-145)
[2017-10-30] MEDS: POTASSIUM CHLORIDE 20MEQ/100ML 100 ML IV PRN (10:32)
[2017-10-30] MEDS ORDERED: MAGNESIUM SULFATE 2GM/50ML 50 ML IV ONE ×2 (11:00→11:30)
[2017-10-30] MEDS: DEXTROSE 5%/0.45% SOD CHL 1,000 ML IV SCH (14:17)
[2017-10-31] VITALS (25 sets, daily range): BP systolic 101–125; BP diastolic 60–81
[2017-10-31] MEDS: ACYCLOVIR SODIUM INJ 500 MG in SODIUM CHLORIDE 0.9% 100 ML 100 ML IV SCH ×3 (01:17→17:03)
[2017-10-31] MEDS: LORAZEPAM INJ 2 MG/ML VIAL IV PRN (04:04)
[2017-10-31] MEDS: CEFTRIAXONE SOD 2 GM VIAL IV SCH (04:33)
[2017-10-31] MEDS: AMPICILLIN SOD 500 MG in SODIUM CHLORIDE 0.9% 50ML 50 ML IV SCH ×3 (06:28→18:16)
[2017-10-31 06:36] LABS: ALANINE AMINOTRANSFERASE 72 IU/L (0-55); ALBUMIN 1.8 g/dL (3.5-5.0); ALBUMIN/GLOBULIN RATIO 0.5 (0.8-2.0); ALKALINE PHOSPHATASE 175 IU/L (40-150); ANION GAP 9.6 mmol/L (8-16); BLOOD UREA NITROGEN 7 mg/dL (7-26); BUN/CREATININE RATIO 13 (6-25); CARBON DIOXIDE 20 mmol/L (22-29); CHLORIDE 111 mmol/L (98-107); CREATININE, SERUM 0.55 mg/dL (0.72-1.25); EST GLOMERULAR FILTRATION RATE > 60 ML/MIN (60-); GLUCOSE 98 mg/dL (74-118); POTASSIUM 3.6 mmol/L (3.5-5.1); SODIUM 137 mmol/L (136-145)
[2017-10-31 06:55] LABS: BASOPHILS % 0.4 % (0.0-1.0); EOSINOPHILS # (AUTO) 0.1 (0.0-0.4); EOSINOPHILS % 1.1 % (0.0-6.0); HEMATOCRIT 23.2 % (38.2-49.6); HEMOGLOBIN 8.1 g/dL (14.0-18.0); LYMPHOCYTES # (AUTO) 1.5 (1.0-3.2); MEAN CORPUSCULAR HEMOGLOBIN 32.1 pg (28-32); MEAN CORPUSCULAR HGB CONC 34.9 g/dL (31-35); MEAN CORPUSCULAR VOLUME 92.1 fL (81-99); MONOCYTES # (AUTO) 0.4 (0.2-0.8); MONOCYTES % 8.9 % (4.4-11.3); NEUTROPHILS # (AUTO) 2.6 (2.1-6.9); NEUTROPHILS % 57.2 % (38.7-80.0); RED BLOOD COUNT 2.52 x10e6/uL (4.3-5.7); RED CELL DISTRIBUTION WIDTH 15.9 % (11.7-14.4)
[2017-10-31 07:03] LABS: PLATELET COUNT 45 x10e3/uL (140-360)
[2017-10-31] MEDS: LACTULOSE SYRUP 20 GM/30 ML UDC NG SCH ×3 (08:23→18:14)
[2017-10-31] MEDS: DEXTROSE 5%/0.45% SOD CHL 1,000 ML IV SCH ×2 (08:25→15:45)
[2017-10-31] MEDS: PANTOPRAZOLE 40 MG 10ML VIAL IV SCH ×2 (08:25→20:39)
--- NOTE | 2017-10-31 10:01 | Progress Note ---
DATE: October 31, 2017 Mr. Wood is a 47-year-old man with a history of alcohol abuse. He came to the emergency room 2 weeks prior to admission with fever and body aches. He was sent home with antibiotics. He came back to the emergency room with changes in mental status and dark stools. He has been in the ICU. PHYSICAL EXAMINATION GENERAL: He looks a little more awake. He still has like slurred speech. VITALS: Temperature is 96.9, blood pressure 112/70. HEART: Regular rate. LUNGS: Clear to auscultation. ABDOMEN: Distended and soft. LABS: Blood work: Potassium 3.6, creatinine is 0.55, and glucose 98. White count 4.62, hemoglobin 8.1, and hematocrit 23.2. CT shows hepatic steatosis. Ammonia level was 94. ASSESSMENT AND PLAN 1. Changes in mental status, probably multifactorial. 2. Gastrointestinal bleeding secondary to esophagitis and acute gastric ulcer. 3. Anemia secondary to gastrointestinal bleed. 4. Hyperammonemia. 5. Liver cirrhosis. 6. Alcohol abuse. The plan at the present time is to continue PPI, IV antibiotics, IV fluids. LP was not obtained. He had a modified barium swallow at bedside. The overall prognosis of the patient is still guarded. I spent more than 30 minutes examining the patient, reviewing overnight events, lab results, x-ray and discussing plan of care with the patient and family at bedside. Job#: [id number]
--- NOTE | 2017-10-31 13:27 | Progress Note ---
DATE: Mr. Wood seems to be more alert and oriented. No complaints at the present time. He remains in the ICU, but he is much better. REVIEW OF SYSTEMS: He is still a little bit confused. PHYSICAL EXAMINATION GENERAL: Alert, confused. Does not seem to be in any acute distress. VITALS: Stable. Currently afebrile. Currently, however, his T-max is 101.3. HEENT: Normocephalic. NECK: Supple. CHEST: Clear. COR: S1 and S2. No S3, S4 or murmur. ABDOMEN: Soft. Bowel sounds are present. No tenderness. EXTREMITIES: No edema. SKIN: No rash. LABS: White count 4.62, hemoglobin 8.1, hematocrit 23, platelets 45. Sodium 137, potassium 3.6, creatinine 0.55. IMPRESSION 1. Fever and altered mental status. It could be all due to delirium tremens and alcohol withdrawal at the present time. His cultures remain negative. He seems to be more alert and clinically seems to be better. 2. Alcoholism with hepatitis and liver cirrhosis. 3. Sepsis on admission, resolved. 4. From an infectious disease point of view, will discontinue Rocephin. Continue ampicillin and acyclovir. If he continues to improve, we can change the acyclovir to oral to finish a total of 14 days. This is for the possibility of encephalomeningitis, although less likely now. We will continue to follow. Job#: [id number]
[2017-10-31] MEDS: CHLORDIAZEPOXIDE HCL 25 MG CAP NG PRN ×2 (17:24→20:39)
[2017-11-01] VITALS (20 sets, daily range): BP systolic 94–123; BP diastolic 56–103
[2017-11-01] MEDS: AMPICILLIN SOD 500 MG in SODIUM CHLORIDE 0.9% 50ML 50 ML IV SCH ×4 (00:15→17:40)
[2017-11-01] MEDS: ACYCLOVIR SODIUM INJ 500 MG in SODIUM CHLORIDE 0.9% 100 ML 100 ML IV SCH ×3 (01:09→18:04)
[2017-11-01] MEDS: CHLORDIAZEPOXIDE HCL 25 MG CAP PO PRN ×2 (02:00→19:22)
[2017-11-01 04:57] LABS: BASOPHILS % 0.4 % (0.0-1.0); EOSINOPHILS # (AUTO) 0.1 (0.0-0.4); HEMATOCRIT 22.5 % (38.2-49.6); HEMOGLOBIN 7.8 g/dL (14.0-18.0); LYMPHOCYTES # (AUTO) 1.6 (1.0-3.2); LYMPHOCYTES % 31.8 % (18.0-39.1); MEAN CORPUSCULAR HEMOGLOBIN 31.8 pg (28-32); MEAN CORPUSCULAR HGB CONC 34.7 g/dL (31-35); MEAN CORPUSCULAR VOLUME 91.8 fL (81-99); MONOCYTES # (AUTO) 0.5 (0.2-0.8); MONOCYTES % 9.4 % (4.4-11.3); NEUTROPHILS # (AUTO) 2.8 (2.1-6.9); NEUTROPHILS % 57.2 % (38.7-80.0); PLATELET COUNT 73 x10e3/uL (140-360); RED BLOOD COUNT 2.45 x10e6/uL (4.3-5.7); RED CELL DISTRIBUTION WIDTH 15.9 % (11.7-14.4)
[2017-11-01 05:21] LABS: ANION GAP 11.4 mmol/L (8-16); BLOOD UREA NITROGEN 6 mg/dL (7-26); BUN/CREATININE RATIO 11 (6-25); CARBON DIOXIDE 19 mmol/L (22-29); CHLORIDE 111 mmol/L (98-107); CREATININE, SERUM 0.57 mg/dL (0.72-1.25); EST GLOMERULAR FILTRATION RATE > 60 ML/MIN (60-); GLUCOSE 102 mg/dL (74-118); POTASSIUM 3.4 mmol/L (3.5-5.1); SODIUM 138 mmol/L (136-145)
[2017-11-01] MEDS: DEXTROSE 5%/0.45% SOD CHL 1,000 ML IV SCH (05:30)
[2017-11-01] MEDS: POTASSIUM CHLORIDE 20MEQ/100ML 100 ML IV PRN (06:06)
[2017-11-01 07:40] LABS: ANISOCYTOSIS SLIGHT; EOSINOPHILS % (MANUAL) 1 % (0-7); HYPOCHROMASIA SLIGHT; LYMPHOCYTES % (MANUAL) 32 % (19-48); MONOCYTES % (MANUAL) 8 % (3.4-9.0); NEUTROPHILS % (MANUAL) 59 % (40-74); PLATELET ESTIMATE SLIGHTLY DECREASED; PLATELET MORPHOLOGY COMMENT FEW LARGE; RBC MORPHOLOGY COMMENT NORMAL
--- NOTE | 2017-11-01 09:54 | Progress Note ---
DATE: November 01, 2017 Mr. Wood is a 47-year-old man with a history of alcohol abuse came to the emergency room with changes in mental status and dark stool. He has been in the ICU. He has been seen by GI, neurologist, critical care. PHYSICAL EXAMINATION GENERAL: He is awake, but he is kind of slow. VITALS: Temperature is 98.2, blood pressure 119/73. HEART: Regular rate. LUNGS: Clear to auscultation. ABDOMEN: Distended and soft. BLOOD WORK: Potassium is 3.4, creatinine 0.57, glucose 102. White count is 4.87, hemoglobin 7.8, hematocrit 22.5. ASSESSMENT AND PLAN 1. Changes in mental status. 2. Gastrointestinal bleeding with esophagitis and acute gastric ulcer. 3. Anemia secondary to gastrointestinal bleed. 4. Hyperammonemia. 5. Liver cirrhosis. 6. Alcohol abuse. PLAN: At the present time, is to continue IV fluids, IV antibiotics, PPIs. The patient had a modified barium swallow. He is going to go for stimulation. Going to have some stimulation today. The overall prognosis of the patient is still guarded. I spent more than 30 minutes examining the patient, reviewing x-rays, lab reports, overnight events, and discussing plan of care with the nurse. Job#: [id number] SANDER
[2017-11-01] MEDS: ONDANSETRON HCL INJ 2 MG/ML VIAL IV PRN (10:04)
[2017-11-01] MEDS: THIAMINE HCL 100 MG TAB PO SCH (10:04)
[2017-11-01] MEDS: LACTULOSE SYRUP 20 GM/30 ML UDC NG SCH ×2 (10:04→17:41)
[2017-11-01] MEDS: PANTOPRAZOLE 40 MG 10ML VIAL IV SCH ×2 (10:04→22:00)
[2017-11-01] MEDS: ACETAMINOPHEN 325 MG TAB PO PRN (10:04)
[2017-11-01] MEDS: NICOTINE 21 MG/EA PATCH TOP PRN (10:04)
[2017-11-02] VITALS (10 sets, daily range): BP systolic 55–116; BP diastolic 49–78
[2017-11-02] MEDS: AMPICILLIN SOD 500 MG in SODIUM CHLORIDE 0.9% 50ML 50 ML IV SCH ×5 (00:35→23:54)
[2017-11-02] MEDS: DEXTROSE 5%/0.45% SOD CHL 1,000 ML IV SCH ×2 (01:30→21:30)
[2017-11-02] MEDS: ACYCLOVIR SODIUM INJ 500 MG in SODIUM CHLORIDE 0.9% 100 ML 100 ML IV SCH ×3 (01:48→16:53)
--- NOTE | 2017-11-02 09:13 | Progress Note ---
DATE: November 02, 2017 Mr. Wood is a 47-year-old man with a history of alcohol abuse came to the emergency room with changes in mental status, dark stool. He was in the ICU with GI bleed and hepatic encephalopathy. Transferred to the floor. He has been confused. He has a 1:1 sitter. PHYSICAL EXAMINATION GENERAL: Today, he is more awake and alert than before. He knows he is in the hospital. VITALS: Temperature is 98, blood pressure 116/49. HEART: Regular rate. LUNGS: Decreased breath sounds bilaterally. ABDOMEN: Distended and soft. BLOOD WORK: Potassium is 3.4, creatinine is 0.57, glucose 102. White count 4.87, hemoglobin 7.8, hematocrit 22.5. ASSESSMENT AND PLAN 1. Changes in mental status due to probably hyperammonemia. 2. Gastrointestinal bleed secondary to esophagitis and acute gastric ulcer. 3. Anemia secondary to gastrointestinal bleed. 4. Hyperammonemia. 5. Liver cirrhosis. 6. Alcohol abuse. PLAN: At the present time, is to continue IV antibiotics, PPIs. He has a 1:1 sitter for confusion. Today, he feels better and he wants to go home. We are going to continue all treatment. Job#: [id number] SANDER
[2017-11-02] MEDS: PANTOPRAZOLE 40 MG 10ML VIAL IV SCH ×2 (10:00→20:43)
[2017-11-02] MEDS: LACTULOSE SYRUP 20 GM/30 ML UDC NG SCH ×2 (11:59→20:43)
[2017-11-02] MEDS: THIAMINE HCL 100 MG TAB PO SCH (11:59)
[2017-11-02] MEDS: CHLORDIAZEPOXIDE HCL 25 MG CAP PO PRN (17:45)
[2017-11-03] VITALS (8 sets, daily range): BP systolic 89–115; BP diastolic 51–73
[2017-11-03] MEDS: ACYCLOVIR SODIUM INJ 500 MG in SODIUM CHLORIDE 0.9% 100 ML 100 ML IV SCH ×3 (01:00→17:08)
[2017-11-03] MEDS: AMPICILLIN SOD 500 MG in SODIUM CHLORIDE 0.9% 50ML 50 ML IV SCH ×4 (05:33→23:40)
[2017-11-03] MEDS: PANTOPRAZOLE 40 MG 10ML VIAL IV SCH ×2 (07:54→20:07)
[2017-11-03] MEDS: LACTULOSE SYRUP 20 GM/30 ML UDC NG SCH ×2 (07:54→20:18)
[2017-11-03] MEDS: THIAMINE HCL 100 MG TAB PO SCH (07:54)
[2017-11-03] MEDS: DEXTROSE 5%/0.45% SOD CHL 1,000 ML IV SCH (07:55)
[2017-11-03 17:07] LABS: BASOPHILS % 0.4 % (0.0-1.0); EOSINOPHILS % 0.8 % (0.0-6.0); HEMATOCRIT 23.6 % (38.2-49.6); HEMOGLOBIN 8.2 g/dL (14.0-18.0); LYMPHOCYTES # (AUTO) 1.3 (1.0-3.2); LYMPHOCYTES % 25.2 % (18.0-39.1); MEAN CORPUSCULAR HEMOGLOBIN 32.4 pg (28-32); MEAN CORPUSCULAR HGB CONC 34.7 g/dL (31-35); MEAN CORPUSCULAR VOLUME 93.3 fL (81-99); MONOCYTES # (AUTO) 0.6 (0.2-0.8); MONOCYTES % 11.8 % (4.4-11.3); NEUTROPHILS # (AUTO) 3.3 (2.1-6.9); NEUTROPHILS % 61.4 % (38.7-80.0); PLATELET COUNT 114 x10e3/uL (140-360); RED BLOOD COUNT 2.53 x10e6/uL (4.3-5.7); RED CELL DISTRIBUTION WIDTH 18.1 % (11.7-14.4)
[2017-11-03 17:33] LABS: ALANINE AMINOTRANSFERASE 66 IU/L (0-55); ALBUMIN 1.8 g/dL (3.5-5.0); ALBUMIN/GLOBULIN RATIO 0.4 (0.8-2.0); ALKALINE PHOSPHATASE 176 IU/L (40-150); ANION GAP 12.1 mmol/L (8-16); BLOOD UREA NITROGEN < 5 mg/dL (7-26); CARBON DIOXIDE 19 mmol/L (22-29); CHLORIDE 109 mmol/L (98-107); CREATININE, SERUM 0.55 mg/dL (0.72-1.25); EST GLOMERULAR FILTRATION RATE > 60 ML/MIN (60-); GLUCOSE 109 mg/dL (74-118); POTASSIUM 3.1 mmol/L (3.5-5.1); SODIUM 137 mmol/L (136-145)
[2017-11-03 17:34] LABS: BUN/CREATININE RATIO 9 (6-25)
[2017-11-03] MEDS ORDERED: POTASSIUM CHLORIDE 20 MEQ TAB CR PO ONE ×2 (19:45→21:00)
[2017-11-04] VITALS (9 sets, daily range): BP systolic 97–109; BP diastolic 54–65
[2017-11-04] MEDS: ACYCLOVIR SODIUM INJ 500 MG in SODIUM CHLORIDE 0.9% 100 ML 100 ML IV SCH (01:00)
[2017-11-04] MEDS: AMPICILLIN SOD 500 MG in SODIUM CHLORIDE 0.9% 50ML 50 ML IV SCH ×4 (06:00→23:43)
[2017-11-04 06:04] LABS: BASOPHILS % 0.3 % (0.0-1.0); EOSINOPHILS % 0.3 % (0.0-6.0); HEMATOCRIT 31.2 % (38.2-49.6); LYMPHOCYTES # (AUTO) 1.4 (1.0-3.2); LYMPHOCYTES % 23.1 % (18.0-39.1); MEAN CORPUSCULAR HEMOGLOBIN 33.1 pg (28-32); MEAN CORPUSCULAR HGB CONC 35.3 g/dL (31-35); MONOCYTES # (AUTO) 0.4 (0.2-0.8); MONOCYTES % 7.1 % (4.4-11.3); NEUTROPHILS # (AUTO) 4.3 (2.1-6.9); NEUTROPHILS % 68.7 % (38.7-80.0); PLATELET COUNT 128 x10e3/uL (140-360); RED BLOOD COUNT 3.32 x10e6/uL (4.3-5.7)
[2017-11-04 06:06] LABS: RED CELL DISTRIBUTION WIDTH 12.2 % (11.7-14.4)
[2017-11-04 06:28] LABS: ALANINE AMINOTRANSFERASE 16 IU/L (0-55); ALBUMIN 2.6 g/dL (3.5-5.0); ALBUMIN/GLOBULIN RATIO 0.8 (0.8-2.0); ALKALINE PHOSPHATASE 68 IU/L (40-150); ANION GAP 9.3 mmol/L (8-16); BLOOD UREA NITROGEN 10 mg/dL (7-26); BUN/CREATININE RATIO 14 (6-25); CALCIUM 8.2 mg/dL (8.4-10.2); CARBON DIOXIDE 23 mmol/L (22-29); CHLORIDE 112 mmol/L (98-107); CREATININE, SERUM 0.73 mg/dL (0.72-1.25); EST GLOMERULAR FILTRATION RATE > 60 ML/MIN (60-); GLUCOSE 103 mg/dL (74-118); MAGNESIUM 1.6 MG/DL (1.3-2.1); POTASSIUM 3.3 mmol/L (3.5-5.1); SODIUM 141 mmol/L (136-145)
[2017-11-04] MEDS: PANTOPRAZOLE 40 MG 10ML VIAL IV SCH ×2 (09:45→20:29)
[2017-11-04] MEDS: LACTULOSE SYRUP 20 GM/30 ML UDC NG SCH ×2 (09:45→20:29)
[2017-11-04] MEDS: FOLIC ACID 1 MG TAB PO SCH (09:45)
[2017-11-04] MEDS: THIAMINE HCL 100 MG TAB PO SCH (09:45)
[2017-11-04] MEDS: ACYCLOVIR 200 MG CAP PO SCH ×4 (12:00→23:43)
[2017-11-04] MEDS ORDERED: POTASSIUM CHLORIDE 20 MEQ TAB CR PO ONE (12:00)
[2017-11-04] MEDS ORDERED: CHLORDIAZEPOXIDE HCL 25 MG CAP PO SCH (12:00)
[2017-11-04] MEDS ORDERED: POTASSIUM CHLORIDE 10 MEQ TABCR ONE (12:21)
[2017-11-04] MEDS: NICOTINE 21 MG/EA PATCH TOP PRN (13:33)
[2017-11-04] MEDS ORDERED: SODIUM CHLORIDE 0.9% 250ML 250 ML ONE (17:36)
[2017-11-04] MEDS: ACETAMINOPHEN 325 MG TAB PO PRN (19:29)
[2017-11-05] VITALS (7 sets, daily range): BP systolic 98–112; BP diastolic 57–68
[2017-11-05] MEDS: AMPICILLIN SOD 500 MG in SODIUM CHLORIDE 0.9% 50ML 50 ML IV SCH ×4 (05:59→23:35)
[2017-11-05] MEDS: ACYCLOVIR 200 MG CAP PO SCH ×4 (05:59→23:35)
[2017-11-05 06:10] LABS: ALANINE AMINOTRANSFERASE 64 IU/L (0-55); ALBUMIN 1.7 g/dL (3.5-5.0); ALBUMIN/GLOBULIN RATIO 0.4 (0.8-2.0); ALKALINE PHOSPHATASE 198 IU/L (40-150); ANION GAP 8.6 mmol/L (8-16); BLOOD UREA NITROGEN < 5 mg/dL (7-26); CARBON DIOXIDE 22 mmol/L (22-29); CHLORIDE 109 mmol/L (98-107); CREATININE, SERUM 0.52 mg/dL (0.72-1.25); EST GLOMERULAR FILTRATION RATE > 60 ML/MIN (60-); GLUCOSE 101 mg/dL (74-118); POTASSIUM 3.6 mmol/L (3.5-5.1); SODIUM 136 mmol/L (136-145)
[2017-11-05 06:14] LABS: BASOPHILS # (AUTO) 0.1 (0.0-0.1); BASOPHILS % 0.9 % (0.0-1.0); EOSINOPHILS # (AUTO) 0.1 (0.0-0.4); EOSINOPHILS % 2.3 % (0.0-6.0); HEMATOCRIT 22.7 % (38.2-49.6); LYMPHOCYTES # (AUTO) 1.7 (1.0-3.2); LYMPHOCYTES % 29.3 % (18.0-39.1); MEAN CORPUSCULAR HEMOGLOBIN 33.3 pg (28-32); MEAN CORPUSCULAR HGB CONC 35.2 g/dL (31-35); MEAN CORPUSCULAR VOLUME 94.6 fL (81-99); MONOCYTES # (AUTO) 0.9 (0.2-0.8); MONOCYTES % 15.1 % (4.4-11.3); PLATELET COUNT 137 x10e3/uL (140-360); RED CELL DISTRIBUTION WIDTH 19.9 % (11.7-14.4)
[2017-11-05 06:17] LABS: BUN/CREATININE RATIO 10 (6-25)
[2017-11-05 07:54] LABS: RBC MORPHOLOGY COMMENT NORMAL
[2017-11-05 07:55] LABS: ANISOCYTOSIS SLIGHT; HYPOCHROMASIA SLIGHT; PLATELET ESTIMATE SLIGHTLY DECREASED; PLATELET MORPHOLOGY COMMENT FEW GIANT
[2017-11-05] MEDS: FOLIC ACID 1 MG TAB PO SCH (09:05)
[2017-11-05] MEDS: LACTULOSE SYRUP 20 GM/30 ML UDC NG SCH ×2 (09:05→20:40)
[2017-11-05] MEDS: PANTOPRAZOLE 40 MG 10ML VIAL IV SCH ×2 (09:05→20:40)
[2017-11-05] MEDS: THIAMINE HCL 100 MG TAB PO SCH (09:05)
--- NOTE | 2017-11-05 10:04 | Progress Note ---
DATE: November 05, 2017 SUBJECTIVE: Mr. Wood is a 47-year-old man with history of alcohol abuse, came to the emergency room with changes in mental status and dark stool. He was found to have hepatic encephalopathy and GI bleed. He was in the ICU for several days, transferred to the floor with a sitter. PHYSICAL EXAMINATION: GENERAL: Today, he is awake and alert. He is better than before. He is still not completely back to normal. VITAL SIGNS: Temperature is 98.1, blood pressure is 112/65. HEART: Regular rate. LUNGS: Clear to auscultation. ABDOMEN: Distended and soft. BLOOD WORK: White count is 5.69, hemoglobin is 8, hematocrit is 22.7. Potassium 3.6, creatinine is 0.52. Liver enzymes are elevated, alkaline phosphatase is elevated. Ammonia level is 83. Hepatitis profile came back negative. C. diff negative. RPR negative. Stomach biopsy showed hyperplastic gastric polyp and no Helicobacter infection. ASSESSMENT: 1. Changes in mental status probably due to hyperammonemia, improving. 2. Gastrointestinal bleed secondary to the esophagitis and acute gastric ulcer. 3. Anemia secondary to gastrointestinal bleed. 4. Hyperammonemia, resolved. 5. Liver cirrhosis. 6. Alcohol abuse. PLAN: At present time is to continue PPIs, IV antibiotics. He is on 1:1 sitter since he gets confused. Continue to monitor for any recurrent bleeding. PT/OT. Once patient is able to ambulate, he will be able to go home with some type of assistance. All this was discussed with patient. Job#: [id number]
[2017-11-06] VITALS (8 sets, daily range): BP systolic 93–115; BP diastolic 56–70
[2017-11-06] MEDS: ACETAMINOPHEN 325 MG TAB PO PRN (00:46)
[2017-11-06] MEDS: AMPICILLIN SOD 500 MG in SODIUM CHLORIDE 0.9% 50ML 50 ML IV SCH ×3 (05:45→18:14)
[2017-11-06] MEDS: ACYCLOVIR 200 MG CAP PO SCH ×3 (05:45→18:14)
[2017-11-06] MEDS: LACTULOSE SYRUP 20 GM/30 ML UDC NG SCH ×2 (09:00→20:34)
[2017-11-06] MEDS: THIAMINE HCL 100 MG TAB PO SCH (09:35)
[2017-11-06] MEDS: PANTOPRAZOLE 40 MG 10ML VIAL IV SCH ×2 (09:35→20:34)
[2017-11-06] MEDS: FOLIC ACID 1 MG TAB PO SCH (09:35)
--- NOTE | 2017-11-06 10:06 | Progress Note ---
DATE: November 06, 2017 SUBJECTIVE: Mr. Wood is a 47-year-old man with history of alcohol abuse, came to the emergency room with changes in mental status and dark stool. He was seen by GI, had endoscopy done. He was found to have hepatic encephalopathy. At the present time, he is on the floor. He is doing better. PHYSICAL EXAMINATION: GENERAL: He is awake and alert. He is more alert. VITAL SIGNS: Temperature is 98.3, blood pressure is 93/61. HEART: Regular rate. LUNGS: Clear to auscultation. ABDOMEN: Distended and soft. BLOOD WORK: Potassium is 3.6, creatinine is 0.52, glucose 101. White count 5.69, hemoglobin is 8, hematocrit is 22.7, and platelets 137,000. ASSESSMENT: 1. Changes in mental status probably due to hepatic encephalopathy. 2. Gastrointestinal bleed secondary to esophagitis and acute gastric ulcer. 3. Anemia secondary to gastrointestinal bleed. 4. Hyperammonemia with hepatic encephalopathy. 5. Liver cirrhosis. 6. Alcohol abuse. PLAN: At present time is patient is doing better. He is on PPIs. He is on IV antibiotics. No sitter at present time. Continue PT/OT. 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 All this was discussed with patient. All questions were answered to satisfaction. Job#: [id number]
[2017-11-07] VITALS: BP 125/51
[2017-11-07] MEDS: AMPICILLIN SOD 500 MG in SODIUM CHLORIDE 0.9% 50ML 50 ML IV SCH ×2 (00:10→05:23)
[2017-11-07] MEDS: ACETAMINOPHEN 325 MG TAB PO PRN (00:44)
[2017-11-07] MEDS: ACYCLOVIR 200 MG CAP PO SCH ×2 (00:44→05:23)
[2017-11-07 04:00] VITALS: BP 121/61
[2017-11-07 05:26] LABS: BASOPHILS % 0.8 % (0.0-1.0); EOSINOPHILS # (AUTO) 0.1 (0.0-0.4); EOSINOPHILS % 1.9 % (0.0-6.0); HEMATOCRIT 23.1 % (38.2-49.6); LYMPHOCYTES # (AUTO) 1.4 (1.0-3.2); LYMPHOCYTES % 26.4 % (18.0-39.1); MEAN CORPUSCULAR HEMOGLOBIN 33.5 pg (28-32); MEAN CORPUSCULAR HGB CONC 34.6 g/dL (31-35); MEAN CORPUSCULAR VOLUME 96.7 fL (81-99); MONOCYTES # (AUTO) 0.8 (0.2-0.8); NEUTROPHILS # (AUTO) 2.8 (2.1-6.9); NEUTROPHILS % 54.7 % (38.7-80.0); PLATELET COUNT 114 x10e3/uL (140-360); RED BLOOD COUNT 2.39 x10e6/uL (4.3-5.7); RED CELL DISTRIBUTION WIDTH 21.8 % (11.7-14.4)
[2017-11-07 05:48] LABS: ANION GAP 9.5 mmol/L (8-16); BLOOD UREA NITROGEN < 5 mg/dL (7-26); CALCIUM 7.9 mg/dL (8.4-10.2); CARBON DIOXIDE 22 mmol/L (22-29); CHLORIDE 105 mmol/L (98-107); EST GLOMERULAR FILTRATION RATE > 60 ML/MIN (60-); GLUCOSE 101 mg/dL (74-118); POTASSIUM 3.5 mmol/L (3.5-5.1); SODIUM 133 mmol/L (136-145)
[2017-11-07 05:49] LABS: BUN/CREATININE RATIO 8 (6-25)
[2017-11-07 08:00] VITALS: BP 94/56
[2017-11-07] MEDS: THIAMINE HCL 100 MG TAB PO SCH (09:25)
[2017-11-07] MEDS: FOLIC ACID 1 MG TAB PO SCH (09:25)
[2017-11-07] MEDS: LACTULOSE SYRUP 20 GM/30 ML UDC NG SCH (09:25)
[2017-11-07] MEDS: PANTOPRAZOLE 40 MG 10ML VIAL IV SCH (09:25)
[2017-11-07 09:27] VITALS: BP 101/66
[2017-11-07 09:30] VITALS: BP 101/66
--- NOTE | 2017-11-07 09:37 | Discharge Summary ---
Mr. Wood is a 47-year-old male with a history of alcohol abuse. He came to the emergency room with changes in mental status and dark stools. He had an endoscopy done that showed gastritis and gastric ulcer. His ammonia levels were elevated. He has hepatic encephalopathy. He was also seen by infectious disease and started on IV antibiotics. At the present time, the patient is doing better. The plan is to discharge him home and have him follow up as an outpatient. On physical examination, he is awake and alert. He wants to go home. Temperature is 97. Blood pressure 121/61. The heart has regular rate. The lungs are clear to auscultation. Abdomen is distended and soft. On the blood work, potassium is 3.5, creatinine 0.6, glucose 101, white count 5.18, hemoglobin 8.0, hematocrit 23.1. DISCHARGE DIAGNOSES 1. Changes in mental status. 2. Hepatic encephalopathy. 3. Gastrointestinal bleed secondary to esophagitis and acute gastric ulcer. 4. Anemia secondary to gastrointestinal bleed. 5. Hyperammonemia. 6. Liver cirrhosis. 7. Alcohol abuse. The plan at the present time is to discharge the patient home on PPI twice a day and lactulose. We had a conversation regarding he needs to stop drinking alcohol. He said he understood. I explained to him all the risks and all the consequences. He needs to follow up with GI as directed by him and follow up with his PCP in 1 week. He is to call me or come back to the emergency room if any recurrent problem. THEODORE FLETCHER MD Job#: [id number]
[2017-11-07] MEDS ORDERED: LACTULOSE20 GM/30 M PO (10:03)
[2017-11-07] MEDS ORDERED: PANTOPRAZOLE SO40 MG PO (10:03)
[2017-11-07] MEDS ORDERED: THIAMINE HCL100 MG PO (10:04)
[2017-11-07] MEDS ORDERED: FOLIC ACID1 MG PO (10:04)
== END 2017-11-07 11:07 | disposition home or self-care (01) | DRG 871 ==
LOC: ER 07:51 → ERHOLD 14:26 → ICU 16:00 → IMCU 11-01 14:34 → MED/SURG3 11-04 13:35
PROVIDERS: ADMIT Internal Medicine; ATTEND Internal Medicine
PROC: 0DB78ZX Excision of Stomach, Pylorus, Via Natural or Artificial Opening Endoscopic, Diagnostic (ICD-10-PCS; 2017-10-25)
PROC: 00JU3ZZ Inspection of Spinal Canal, Percutaneous Approach (ICD-10-PCS; principal; 2017-10-26)
DX: A41.9 Sepsis, unspecified organism (principal); K25.0 Acute gastric ulcer with hemorrhage; K92.1 Melena; E72.20 Disorder of urea cycle metabolism, unspecified; D62 Acute posthemorrhagic anemia; E87.0 Hyperosmolality and hypernatremia; F10.231 Alcohol dependence with withdrawal delirium; K70.40 Alcoholic hepatic failure without coma; R65.20 Severe sepsis without septic shock; K70.30 Alcoholic cirrhosis of liver without ascites; K21.0 Gastro-esophageal reflux disease with esophagitis; D72.829 Elevated white blood cell count, unspecified; K70.10 Alcoholic hepatitis without ascites; E87.6 Hypokalemia; Z91.19 Patient's noncompliance with other medical treatment and regimen
CPT/HCPCS: 36415; 36430; 43239; 51700; 70450; 71045; 74177; 74230; 76705; 80048; 80053; 80307; 80320; 80329; 81001; 82140; 82150; 82270; 82550; 82553; 82607; 82948; 83605; 83690; 83735; 83880; 84425; 84443; 84484; 85014; 85018; 85025; 85610; 85730; 86592; 86850; 86900; 86920; 87040; 87086; 87493; 88305; 88312; 93005; 96361; 96366; 97139; 99285; J0692; J0696; J1170; J2060; J2250; J2353; J2405; J3411; J3480; J3486; J7030; J7040; J7050; J7070; P9016; Q9967

== ENCOUNTER 2020-04-06 19:26 | Emergency (ER) | payer SELFPAY ==
[~2020-04-06] VITALS: Ht 175.3 cm; Wt 69.4 kg
[~2020-04-06 19:26] MED LIST: FOLIC ACID1 MG PO; LACTULOSE20 GM/30 M PO; PANTOPRAZOLE SO40 MG PO; THIAMINE HCL100 MG PO
[2020-04-06] MEDS ORDERED: HYDROCODONE/APAP 10MG-325MG TAB PO ONE (23:15)
[2020-04-06] MEDS ORDERED: ULTRAM50 MG PO (23:43)
[2020-04-06 23:47] VITALS: BP 107/74
== END 2020-04-07 | disposition home or self-care (01) ==
LOC: ER 20:27
DX: S52.592A Other fractures of lower end of left radius, initial encounter for closed fracture (principal); S52.612A Displaced fracture of left ulna styloid process, initial encounter for closed fracture; W19.XXXA Unspecified fall, initial encounter
CPT/HCPCS: 99283

== ENCOUNTER 2020-10-24 22:01 | Emergency (ER) | payer SELFPAY ==
[~2020-10-24] VITALS: Ht 175.3 cm; Wt 69.4 kg
[~2020-10-24 22:01] MED LIST changes: +ULTRAM50 MG PO
[2020-10-24 22:59] LABS: BASOPHILS # (AUTO) 0.1 (0.0-0.1); BASOPHILS % 0.7 % (0.0-1.0); EOSINOPHILS # (AUTO) 0.1 (0.0-0.4); EOSINOPHILS % 1.4 % (0.0-6.0); HEMATOCRIT 36.4 % (38.2-49.6); HEMOGLOBIN 12.7 g/dL (14.0-18.0); LYMPHOCYTES # (AUTO) 1.6 (1.0-3.2); LYMPHOCYTES % 21.5 % (18.0-39.1); MEAN CORPUSCULAR HEMOGLOBIN 33.8 pg (28-32); MEAN CORPUSCULAR HGB CONC 34.9 g/dL (31-35); MEAN CORPUSCULAR VOLUME 96.8 fL (81-99); MONOCYTES # (AUTO) 1.4 (0.2-0.8); MONOCYTES % 18.8 % (4.4-11.3); NEUTROPHILS # (AUTO) 4.1 (2.1-6.9); NEUTROPHILS % 57.2 % (38.7-80.0); PLATELET COUNT 103 x10e3/uL (140-360); RED BLOOD COUNT 3.76 x10e6/uL (4.3-5.7); RED CELL DISTRIBUTION WIDTH 13.4 % (11.7-14.4)
[2020-10-24 23:11] LABS: ALANINE AMINOTRANSFERASE 27 IU/L (0-55); ALBUMIN 2.2 g/dL (3.5-5.0); ALBUMIN/GLOBULIN RATIO 0.6 (0.8-2.0); ALKALINE PHOSPHATASE 164 IU/L (40-150); ANION GAP 12.4 mmol/L (8-16); BLOOD UREA NITROGEN < 5 mg/dL (7-26); CALCIUM 7.3 mg/dL (8.4-10.2); CARBON DIOXIDE 17 mmol/L (22-29); CHLORIDE 107 mmol/L (98-107); CREATINE KINASE 105 IU/L (30-200); CREATININE, SERUM 0.59 mg/dL (0.72-1.25); EST GLOMERULAR FILTRATION RATE 145 ML/MIN (60-); GLUCOSE 92 mg/dL (74-118); POTASSIUM 3.4 mmol/L (3.5-5.1); SODIUM 133 mmol/L (136-145)
[2020-10-24 23:20] LABS: BUN/CREATININE RATIO 8 (6-25)
[2020-10-25 00:03] LABS: AMPHETAMINES SCREEN,URINE NEGATIVE (NEGATIVE); BENZODIAZEPINES SCREEN,URINE NEGATIVE (NEGATIVE); CLARITY,URINE CLEAR (CLEAR); COLOR,URINE YELLOW (YELLOW); KETONES,URINE NEGATIVE (NEGATIVE); LEUKOCYTE ESTERASE ,URINE NEGATIVE (NEGATIVE); NITRITE,URINE NEGATIVE (NEGATIVE); PHENCYCLIDINE SCREEN,URINE NEGATIVE (NEGATIVE); PROTEIN,URINE DIPSTICK NEGATIVE (NEGATIVE); URINE UROBILINOGEN 0.2 mg/dL (0.2 - 1)
[2020-10-25 00:04] LABS: BACTERIA,URINE FEW /HPF; EPITHELIAL CELLS,URINE FEW /LPF; RBC,URINE 0-5 /HPF (0-5); WBC,URINE (MAN) 0-5 /HPF (0-5)
[2020-10-25] MEDS ORDERED: SODIUM CHLORIDE 0.9% 50ML 50 ML ONE (00:06)
[2020-10-25] MEDS ORDERED: IOPAMIDOL 370 MG/ML 200 ML INFUS..BTL INJ ONE (00:06)
[2020-10-25 02:47] VITALS: BP 128/85
== END 2020-10-25 02:45 | disposition home or self-care (01) ==
LOC: ER 22:38
DX: R14.0 Abdominal distension (gaseous) (principal); K70.30 Alcoholic cirrhosis of liver without ascites; K76.6 Portal hypertension; F10.10 Alcohol abuse, uncomplicated; F17.210 Nicotine dependence, cigarettes, uncomplicated
CPT/HCPCS: 36415; 74177; 80053; 80307; 81001; 82550; 82553; 83690; 84484; 85025; 99284; Q9967